=== PATIENT | female | born 1960 | race Caucasian/White ===

== ENCOUNTER → 2017-09-23 | Outpatient (CLI) | payer BC ==
--- NOTE | 2017-09-27 08:44 | MM ---
Reason for exam: screening (asymptomatic). Last mammogram was performed 1 year ago. History: Patient is postmenopausal, has history of high-risk lesion on a previous biopsy at age 55, and had first child at age 30. Family history of breast cancer in mother at age 78. High risk MG pre op needle loc RT of the right breast, November 21, 2015. Benign left mammotome panel of the left breast, September 07, 2013. Took hormonal contraceptives for 1 year beginning at age 22. Took estrogen for 7 years beginning at age 37. Took progesterone for 1 year beginning at age 37. Physical Findings: A clinical breast exam by your physician is recommended on an annual basis and results should be correlated with mammographic findings. MG 3D Screening Mammo W/Cad Bilateral CC and MLO view(s) were taken. Prior study comparison: September 22, 2016, bilateral MG 3d diag mammo w/cad [facility]. June 07, 2016, right breast MG 3d diag mammo w/cad RT. There are scattered fibroglandular densities. No suspicious abnormality. Post biopsy change on the left breast. No significant changes when compared with prior studies. ASSESSMENT: Benign, BI-RAD 2 RECOMMENDATION: Routine screening mammogram of both breasts in 1 year.
== END | disposition home or self-care (01) ==
LOC: RADMAMWWP 13:02
PROVIDERS: ATTEND Obstetrics & Gynecology
DX: Z12.31 Encounter for screening mammogram for malignant neoplasm of breast (principal)
CPT/HCPCS: 77063; G0202

== ENCOUNTER → 2018-12-18 | Outpatient (CLI) | payer OTHER ==
--- NOTE | 2018-12-19 08:47 | MM ---
Reason for exam: screening (asymptomatic). Last mammogram was performed 1 year and 3 months ago. History: Patient is postmenopausal, has history of high-risk lesion on a previous biopsy at age 55, and had first child at age 30. Family history of breast cancer in mother at age 78. High risk MG pre op needle loc RT of the right breast, November 21, 2015. Benign left mammotome panel of the left breast, September 07, 2013. Took hormonal contraceptives for 1 year beginning at age 22. Took estrogen for 7 years beginning at age 37. Took progesterone for 1 year beginning at age 37. Physical Findings: A clinical breast exam by your physician is recommended on an annual basis and results should be correlated with mammographic findings. MG 3D Screening Mammo W/Cad Bilateral CC and MLO view(s) were taken. Prior study comparison: September 23, 2017, bilateral MG 3d screening mammo w/cad. September 22, 2016, bilateral MG 3d diag mammo w/cad [facility]. There are scattered fibroglandular densities. Benign appearing bilateral calcifications. Left biopsy marker noted. No significant changes when compared with prior studies. ASSESSMENT: Benign, BI-RAD 2 RECOMMENDATION: Routine screening mammogram of both breasts in 1 year.
== END | disposition home or self-care (01) ==
LOC: RADMAMWWP 09:54
PROVIDERS: ATTEND Obstetrics & Gynecology
DX: Z12.31 Encounter for screening mammogram for malignant neoplasm of breast (principal); Z80.3 Family history of malignant neoplasm of breast
CPT/HCPCS: 77063; 77067

== ENCOUNTER 2019-03-22 08:18 | Day surgery (SDC) | payer OTHER ==
[2019-03-20 16:12] VITALS: BMI 43.0
[~2019-03-22 08:18] MED LIST: LACTATED RINGERS 1,000 ML IV SCH; LIDOCAINE 1% 20 ML VIAL (10MG/ML) FOR IV START INTRADERMA PRN
[2019-03-22 08:47] VITALS: TEMP 98.6
[2019-03-22] MEDS ORDERED: PROPOFOL 10 MG/ML 20 ML VIAL IV ONE (10:04)
--- NOTE | 2019-03-22 10:43 | P.PCN ---
Date of Procedure: 03/22/19 Procedure(s) Performed: Procedure: Total colonoscopy. Preoperative diagnosis: Family history of colon cancer. Postoperative diagnosis: Exam within normal limits. Preparation: HalfLytely prep. Sedation: Was provided by anesthesia. Brief clinical history: The patient is a 59-year-old female who is scheduled for this evaluation for screening for colon cancer because of family history of colon cancer in her dad and prior history of polyps. She had an exam in 2015 but her preparation was less than ideal on the right side and cecum and was recommended repeat exam at this time before going with the 5-year schedule. The patient has no new complaints, bleeding or anemia. Procedure: With the patient on her left lateral decubitus position and after informed consent and adequate sedation, the perianal area was inspected and it did not show any fissures or fistulas. There were no masses felt on digital rectal examination. The Olympus CFH 190L video colonoscope was then inserted in the rectum in the usual fashion and advanced to the cecum. The preparation was good. The mucosa appeared healthy. There were no obvious polyps or tumors seen. No obvious diverticular disease or other pathology. I retroflexed the endoscope in the rectum before the endoscope was withdrawn. Low-grade internal hemorrhoids were noted but there was no bleeding. The patient tolerated the procedure well. Plan: The patient was reassured. She will follow-up with you as planned and I recommended repeat exam in 5 years.
[2019-03-22 10:55] VITALS: BP 126/85; PULSE 79; RESP 18
== END 2019-03-22 11:14 | disposition home or self-care (01) ==
LOC: ORWHC2ENDO 08:18
DX: Z12.11 Encounter for screening for malignant neoplasm of colon (principal); K64.8 Other hemorrhoids; Z86.010 Personal history of colon polyps; Z80.0 Family history of malignant neoplasm of digestive organs; K21.9 Gastro-esophageal reflux disease without esophagitis; J45.909 Unspecified asthma, uncomplicated; M79.7 Fibromyalgia; M19.90 Unspecified osteoarthritis, unspecified site; G47.33 Obstructive sleep apnea (adult) (pediatric); J44.9 Chronic obstructive pulmonary disease, unspecified; E66.01 Morbid (severe) obesity due to excess calories; Z68.41 Body mass index [BMI] 40.0-44.9, adult; E07.9 Disorder of thyroid, unspecified; Z79.890 Hormone replacement therapy; Z79.51 Long term (current) use of inhaled steroids; Z79.899 Other long term (current) drug therapy; Z88.1 Allergy status to other antibiotic agents; Z88.2 Allergy status to sulfonamides; Z91.09 Other allergy status, other than to drugs and biological substances
CPT/HCPCS: J2704; G0105

== ENCOUNTER → 2020-04-01 | Outpatient (CLI) | payer OTHER ==
--- NOTE | 2020-04-03 10:43 | MM ---
Reason for exam: screening (asymptomatic). Last mammogram was performed 1 year and 3 months ago. History: Patient is postmenopausal, has history of high-risk lesion on a previous biopsy at age 55, and had first child at age 30. Family history of breast cancer in mother at age 78. High risk MG pre op needle loc RT of the right breast, November 21, 2015. Benign left mammotome panel of the left breast, September 07, 2013. Took hormonal contraceptives for 1 year beginning at age 22. Took estrogen for 7 years beginning at age 37. Took progesterone for 1 year beginning at age 37. Physical Findings: A clinical breast exam by your physician is recommended on an annual basis and results should be correlated with mammographic findings. MG 3D Screening Mammo W/Cad Bilateral CC and MLO view(s) were taken. Prior study comparison: December 18, 2018, bilateral MG 3d screening mammo w/cad. September 23, 2017, bilateral MG 3d screening mammo w/cad. The breast tissue is heterogeneously dense. This may lower the sensitivity of mammography. Stable benign calcifications. No significant changes when compared with prior studies. ASSESSMENT: Benign, BI-RAD 2 RECOMMENDATION: Routine screening mammogram of both breasts in 1 year.
== END | disposition home or self-care (01) ==
LOC: RADMAMWWP 14:59
PROVIDERS: ATTEND Family Medicine
DX: Z12.31 Encounter for screening mammogram for malignant neoplasm of breast (principal)
CPT/HCPCS: 77063; 77067

== ENCOUNTER → 2020-04-09 | Outpatient (CLI) | payer OTHER ==
[2020-04-09 10:22] VITALS: BP 124/74; PULSE 87; RESP 20; TEMP 97.9
--- NOTE | 2020-04-09 13:18 | P.HPOB ---
History of Present Illness H&P Date: 04/09/20 Chief Complaint: The patient is here for her routine gynecologic exam. This is a 60-year-old with an LMP of 1995. Patient is here to establish with this office. It has been more than one year since her last pelvic exam. She is without gynecologic complaints and denies any postmenopausal bleeding. Review of Systems She has gained about 6 pounds over the past year. She has been under a lot of stress related to issues regarding her parents estate after they . She denies respiratory or cardiac problems. GI: Occasional gastric reflux. Past Medical History Past Medical History: Asthma, Fibromyalgia, GERD/Reflux, Hyperlipidemia, Osteoarthritis (OA), Seizure Disorder, Skin Disorder, Sleep Apnea/CPAP/BIPAP, Thyroid Disorder Additional Past Medical History / Comment(s): ECZEMA, small HIATAL HERNIA, IBS. hx fx back and neck(mult stress fractures), TMJ., sjogrens, gabriela diasease, hypothyroid, osteomylasia, osteopenia. Past BARKEEP history: HPV on a Pap smear in 2004. No other history of STDs. History of Any Multi-Drug Resistant Organisms: None Reported Past Surgical History: Section, Ear Surgery Additional Past Surgical History / Comment(s): RIGHT EYE surgery for blocked tear duck and deviated septum, SINUS SURGERY X2, RIGHT BREAST LUMPECTOMY, LEFT BREAST BX. Colonoscopy 2019(next after 5yr). One after previous vaginal delivery. Past Anesthesia/Blood Transfusion Reactions: Motion Sickness, Postoperative Nausea & Vomiting (PONV) Additional Past Anesthesia/Blood Transfusion Reaction / Comment(s): diff intubation per pt-needs pediatric size for intubation, hx dislocated jaw- limitations for opening mouth. TMJ. pt states she has never had general anesthesia/intubation but was forewarned she would have to need pediatric size, , front dental implant Past Psychological History: Anxiety, Depression Smoking Status: Never smoker Past Alcohol Use History: Rare (1 year) Past Drug Use History: None Reported Additional Drug Use History / Comment(s): CBD oil for seizures Additional History: She is and is not seeing anybody at this time and has not been sexually active for several years. 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 Hepatitis B, chronic carrier. Brother(s) Family Medical History: Hyperlipidemia, Osteoarthritis (OA) Medications and Allergies Home Medications Medication Instructions Recorded Confirmed Type Albuterol Inhaler (Mhu) [Ventolin 1 - 2 puff INHALATION DIRECTED 11/19/15 04/09/20 History Hfa Inhaler] PRN Atorvastatin [Lipitor] 80 mg PO DAILY@1700 11/19/15 04/09/20 History Budesonide/Formoterol Fumarate 1 puff IH BID PRN 11/19/15 04/09/20 History [Symbicort 160-4.5 Mcg Inhaler] Citalopram Hydrobromide [CeleXA] 40 mg PO DAILY@1700 11/19/15 04/09/20 History Fluticasone Nasal [place] [Flonase 2 spray EA NOSTRIL HS 11/19/15 04/09/20 History Nasal [place]] Montelukast [Singulair] 10 mg PO HS 11/19/15 04/09/20 History Pantoprazole Sodium [Protonix] 40 mg PO QAM 11/19/15 04/09/20 History Ubidecarenone [Co Q-10] 100 mg PO DAILY 11/19/15 04/09/20 History Vitamin B Complex 1 each PO DAILY 11/19/15 04/09/20 History Calcium Citrate 300 - 600 mg PO DAILY 04/01/16 04/09/20 History Raloxifene [Evista] 60 mg PO DAILY@1700 04/01/16 04/09/20 History Ibuprofen [Motrin] 800 mg PO BID PRN 03/20/19 04/09/20 History Levothyroxine Sodium [Synthroid] 75 mcg PO DAILY 03/20/19 04/09/20 History Loratadine-Pseudoeph 5-120 mg 1 each PO Q12HR PRN 03/20/19 04/09/20 History [Claritin-D 12 HR] Cholecalciferol [Vitamin D3 (25 5,000 unit PO DAILY 04/09/20 04/09/20 History Mcg = 1000 Iu)] Eslicarbazepine Acetate [Aptiom] 600 mg PO DAILY 04/09/20 04/09/20 History cycloSPORINE [Restasis] 1 drop BOTH EYES BID 04/09/20 04/09/20 History Allergies Allergy/AdvReac Type Severity Reaction Status Date / Time Sulfa (Sulfonamide Allergy Rash/Hives Verified 04/09/20 10:10 Antibiotics) erythromycin base AdvReac Abdominal Verified 04/09/20 10:10 Pain metronidazole [From Flagyl] AdvReac Abdominal Verified 04/09/20 10:10 Pain silk tape AdvReac Rash/Hives Uncoded 04/09/20 10:10 Exam Vital Signs Temp Pulse Resp BP Pulse Ox 04/09/20 10:18 97.9 F 87 20 124/74 96 Intake and Output 04/08/20 04/09/20 04/09/20 22:59 06:59 14:59 Other: Weight 116.573 kg Height 5 feet 3-1/2 inches, weight 257 pounds, BMI 45.5. This is a well-developed well-nourished heavyset white female who is alert and oriented times 3 in no acute distress. HEENT: Within normal limits. NECK: Supple without mass or thyromegaly. CHEST AND LUNGS: Clear to auscultation. HEART: Regular rate and rhythm. BREASTS: Are without mass or discharge. AXILLARY EXAM: Negative for adenopathy. BACK: Negative for CVA tenderness. ABDOMEN: Soft, obese, nontender, without palpable masses. PELVIC EXAM: Normal external genitalia with mild atrophy. Cervix and vagina appear normal with mild atrophy. There is no unusual discharge. There is no evidence of prolapse. The uterus is midposition, nongravid size and nontender. There are no palpable adnexal masses or tenderness. Bimanual examination is somewhat limited secondary to her size. RECTAL EXAM: rectovaginal exam is negative for mass or tenderness and is negative for occult blood. EXTREMITIES: Nontender. IMPRESSION: 1. 60-year-old menopausal female with normal gynecologic exam. 2. Multiple medical problems. PLAN: 1. Pap smear was performed. 2. Self breast awareness was discussed with the patient. 3. Screening mammogram was done on 04/01/2020 and was benign. 4. Osteoporosis prevention was discussed. I have stressed the importance of adequate calcium, vitamin D and regular exercise. Recommended amounts of calci um and vitamin D were also discussed. She is unsure when her last bone density test was done. She will try to check her records. We will plan repeating this in 1 year unless she believes the last bone density test was done within the last year. 5. She was advised to return in one year for her annual well woman exam.
--- NOTE | 2020-04-16 11:50 | P.PN ---
Progress Note - Text Progress Note Date: 04/16/20 OUTPATIENT FOLLOW-UP NOTE TEST(S)/RESULTS: Pap smear from 04/09/2020 was negative. METHOD OF NOTIFICATION: A message with this result was left on the patient's voicemail. PATIENT COMMENTS: DIAGNOSIS: Negative Pap smear DISCUSSION: PLAN: She was advised to return in one year for her annual well woman exam.
== END | disposition home or self-care (01) ==
LOC: WWCWWP 10:01
PROVIDERS: ATTEND Obstetrics & Gynecology
DX: Z53.9 Procedure and treatment not carried out, unspecified reason (principal)

== ENCOUNTER → 2020-06-06 | Outpatient (CLI) | payer OTHER ==
--- NOTE | 2020-06-06 09:41 | CT ---
EXAMINATION TYPE: CT abdomen pelvis wo con DATE OF EXAM: 06/06/2020 COMPARISON: None HISTORY: LUQ pain, history of IBS CT DLP: 991 mGycm Examination of the solid and hollow viscera is limited given the lack of contrast. FINDINGS: LUNG BASES: No evidence for nodule. No evidence for infiltrate. LIVER/GB: The gallbladder is unremarkable. No space-occupying hepatic lesion. PANCREAS: No pancreatic mass identified. No inflammatory process seen. SPLEEN: No evidence for splenomegaly. No intrasplenic lesions seen. ADRENALS: No adrenal nodules identified. No evidence for thickening. KIDNEYS: No evidence for renal mass. No nephrolithiasis. No hydronephrosis. BOWEL: Appendix has a normal appearance. No evidence of bowel obstruction. No inflammatory process. Lymph nodes: No evidence for adenopathy greater than 1 cm. Abdominal aorta: Atheromatous changes seen. No evidence for aneurysm. Genital organs: There is thickening of the endometrium at 1.5 cm. Further evaluation with pelvic ultr asound is advised. No distinct uterine mass or adnexal mass seen. Other: No significant abnormality. IMPRESSION: 1.There is thickening of the endometrium at 1.5 cm. Further evaluation with pelvic ultrasound is advi sed.
== END | disposition home or self-care (01) ==
LOC: RADCTMAIN 07:44
PROVIDERS: ATTEND Family Medicine
DX: R93.89 Abnormal findings on diagnostic imaging of other specified body structures (principal); R10.32 Left lower quadrant pain
CPT/HCPCS: 74176

== ENCOUNTER → 2020-06-27 | Outpatient (CLI) | payer OTHER ==
--- NOTE | 2020-06-27 14:58 | US ---
EXAMINATION TYPE: US transvaginal DATE OF EXAM: 06/27/2020 COMPARISON: CLINICAL HISTORY: R93.[address] showed endometrial thickening TECHNIQUE: Transvaginal (TV). 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 Uterus: Anteverted heterogenous and appears small in size. 2. Endometrium: Fluid seen in endometrial canal extending to cervical 3. Right Ovary: Obscured by overlying bowel gas 4. Left Ovary: Obscured by overlying bowel gas 5. Bilateral Adnexa: wnl 6. Posterior cul-de-sac: no free fluid IMPRESSION: Fluid within the endometrial canal is nonspecific.
== END | disposition home or self-care (01) ==
LOC: RADUSWWP 14:08
PROVIDERS: ATTEND Family Medicine
DX: R93.89 Abnormal findings on diagnostic imaging of other specified body structures (principal)
CPT/HCPCS: 76830

== ENCOUNTER 2020-08-06 08:31 | Day surgery (SDC) | payer MEDICARE, OTHER ==
[2020-08-05 10:31] VITALS: BMI 44.2
[~2020-08-06 08:31] MED LIST changes: +LIDOCAINE 1% (10MG/ML) FOR IV START INTRADERMA PRN; -LIDOCAINE 1% 20 ML VIAL (10MG/ML) FOR IV START INTRADERMA PRN
[2020-08-06 09:15] VITALS: TEMP 98
[2020-08-06] MEDS ORDERED: PROPOFOL 10 MG/ML 20 ML VIAL IV ONE (09:56)
[2020-08-06] MEDS ORDERED: LIDOCAINE 1% INJ 10MG/ML (20 ML MDV) ONE (09:56)
--- NOTE | 2020-08-06 10:10 | P.PCN ---
Date of Procedure: 08/06/20 Procedure(s) Performed: BRIEF HISTORY: Patient is a 60-year-old, pleasant, white female scheduled for an upper endoscopy as a part of evaluation of epigastric and left upper quadrant abdominal pain associated with abdominal bloating as well as heartburn for several years duration. She has been on Protonix 40 mg twice daily despite which significant symptomatic. She tried Pepcid at bedtime.. PROCEDURE PERFORMED: Esophagogastroduodenoscopy with biopsy. PREOPERATIVE DIAGNOSIS: Long-standing history of GERD/epigastric. IV sedation per anesthesia. PROCEDURE: After informed consent was obtained, the patient was brought into the endoscopy unit. IV sedation was administered by Anesthesia under continuous monitoring. Initially the Olympus GIF-140 video endoscope was inserted into the mouth. Esophagus intubated without any difficulty. It was gradually advanced into the stomach and duodenum and carefully examined. The bulb of the duodenum had mild duodenitis and the second part of the duodenum appeared normal. Her sister at length of the duodenum to rule out celiac disease. The scope at this time was withdrawn to the stomach, adequately insufflated with air, and upon careful examination, mucosa of the antrum, and mild gastritis and biopsies were done from this area. The body, cardia and the fundus appeared normal. The scope was then withdrawn into the esophagus. The GE junction was located at 39 cm from the incisors. The esophagus appeared normal. There were no erosions or ulcerati ons seen, biopsies were done from the distal esophagus and the patient tolerated the procedure well. IMPRESSION: 1. Mild antral gastritis 2. Mild duodenitis but no evidence of peptic ulcer disease. RECOMMENDATIONS: The findings of this examination were discussed with the patient as well as a family. She was advised to follow with the biopsy result. She'll be seen in office in 2 weeks..
[2020-08-06 10:39] VITALS: BP 114/74; PULSE 73; RESP 16
== END 2020-08-06 11:00 | disposition home or self-care (01) ==
LOC: ORWHC2ENDO 08:31
PROVIDERS: ATTEND Internal Medicine Gastroenterology
DX: K21.00 Gastro-esophageal reflux disease with esophagitis, without bleeding (principal); K29.50 Unspecified chronic gastritis without bleeding; K29.80 Duodenitis without bleeding; E78.5 Hyperlipidemia, unspecified; J45.909 Unspecified asthma, uncomplicated; M79.7 Fibromyalgia; M35.00 Sjogren syndrome, unspecified; G47.33 Obstructive sleep apnea (adult) (pediatric); E07.9 Disorder of thyroid, unspecified; R56.9 Unspecified convulsions; F41.9 Anxiety disorder, unspecified; F32.9 Major depressive disorder, single episode, unspecified; Z99.89 Dependence on other enabling machines and devices; Z91.19 Patient's noncompliance with other medical treatment and regimen; Z79.51 Long term (current) use of inhaled steroids; Z79.1 Long term (current) use of non-steroidal anti-inflammatories (NSAID); Z79.890 Hormone replacement therapy; Z79.899 Other long term (current) drug therapy; Z88.1 Allergy status to other antibiotic agents; Z88.2 Allergy status to sulfonamides; Z88.8 Allergy status to other drugs, medicaments and biological substances; Z91.09 Other allergy status, other than to drugs and biological substances
CPT/HCPCS: 88305; 43239; J2001; J2704

== ENCOUNTER → 2021-04-02 | Outpatient (CLI) | payer MEDICARE, OTHER ==
--- NOTE | 2021-04-06 14:36 | MM ---
Reason for exam: screening (asymptomatic). Last mammogram was performed 1 year ago. History: Patient is postmenopausal, has history of high-risk lesion on a previous biopsy at age 55, and had first child at age 30. Family history of breast cancer in mother at age 78. High risk MG pre op needle loc RT of the right breast, November 21, 2015. Benign left mammotome panel of the left breast, September 07, 2013. Took hormonal contraceptives for 1 year beginning at age 22. Took estrogen for 7 years beginning at age 37. Took progesterone for 1 year beginning at age 37. Physical Findings: A clinical breast exam by your physician is recommended on an annual basis and results should be correlated with mammographic findings. MG 3D Screening Mammo W/Cad Bilateral CC, MLO, and XCCL view(s) were taken. Prior study comparison: April 01, 2020, bilateral MG 3d screening mammo w/cad. December 18, 2018, bilateral MG 3d screening mammo w/cad. There are scattered fibroglandular densities. No significant changes when compared with prior studies. ASSESSMENT: Benign, BI-RAD 2 RECOMMENDATION: Routine screening mammogram of both breasts in 1 year.
== END | disposition home or self-care (01) ==
LOC: RADMAMWWP 13:01
PROVIDERS: ATTEND Family Medicine
DX: Z12.31 Encounter for screening mammogram for malignant neoplasm of breast (principal); Z78.0 Asymptomatic menopausal state; Z80.3 Family history of malignant neoplasm of breast; Z79.3 Long term (current) use of hormonal contraceptives
CPT/HCPCS: 77063; 77067

== ENCOUNTER → 2021-04-07 | Outpatient (CLI) | payer MEDICARE, OTHER ==
[2021-04-07 15:04] VITALS: BP 128/84; PULSE 87; RESP 18; TEMP 98.5
--- NOTE | 2021-04-07 16:56 | P.HPOB ---
History of Present Illness H&P Date: 04/07/21 Chief Complaint: The patient is here for her routine gynecologic exam. This is a 61-year-old with an LMP of 1995. The patient is without gynecologic complaints and denies any postmenopausal bleeding. She states she recently had a bone density test at Dr. Serna's office. She has not gotten results from this. She had an ultrasound done on 06/27/2020 and was told there was some fluid in the endometrium. The ultrasound was done because of possible endometrial thickening on CT scan which was done for some type of GI indication. Review of Systems The patient has gained 5 pounds over the last year. She denies respiratory, cardiac, or G.I. problems. Past Medical History Past Medical History: Asthma, Fibromyalgia, GERD/Reflux, Hyperlipidemia, Osteoarthritis (OA), Seizure Disorder, Skin Disorder, Sleep Apnea/CPAP/BIPAP, Thyroid Disorder Additional Past Medical History / Comment(s): ECZEMA, HIATAL HERNIA, IBS. 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 No other history of STDs. History of Any Multi-Drug Resistant Organisms: None Reported Past Surgical History: Breast Surgery, Section, Ear Surgery Additional Past Surgical History / Comment(s): RIGHT EYE surgery for blocked tear duck, deviated septum, SINUS SURGERY X2, RIGHT BREAST LUMPECTOMY, LEFT BREAST biopsy with marker Past Anesthesia/Blood Transfusion Reactions: Motion Sickness, Postoperative Nausea & Vomiting (PONV) Additional Past Anesthesia/Blood Transfusion Reaction / Comment(s): diff intu bation per pt-needs pediatric size for intubation, hx dislocated jaw-limitations for opening mouth. TMJ. diff walking up after general anesthesia Past Psychological History: Anxiety, Depression Smoking Status: Never smoker Past Alcohol Use History: Rare (One per year) Past Drug Use History: None Reported Additional Drug Use History / Comment(s): . Additional History: She is and has not seen anybody at this time and has not been sexually active for several years. 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 Hepatitis B, Brother(s) Family Medical History: Hyperlipidemia, Osteoarthritis (OA) Medications and Allergies Home Medications Medication Instructions Recorded Confirmed Type Atorvastatin [Lipitor] 80 mg PO 1800 11/19/15 04/07/21 History Budesonide/Formoterol Fumarate 1 puff IH BID PRN 11/19/15 04/07/21 History [Symbicort 160-4.5 Mcg Inhaler] Citalopram Hydrobromide [CeleXA] 40 mg PO 1800 11/19/15 04/07/21 History Fluticasone Nasal [place] [Flonase 2 spray EA NOSTRIL HS 11/19/15 04/07/21 History Nasal [place]] Montelukast [Singulair] 10 mg PO HS 11/19/15 04/07/21 History Pantoprazole Sodium [Protonix] 40 mg PO BID 11/19/15 04/07/21 History Ubidecarenone [Co Q-10] 100 mg PO DAILY PRN 11/19/15 04/07/21 History Vitamin B Complex 1 each PO DAILY 11/19/15 04/07/21 History Calcium Citrate 300 - 600 mg PO Q2D 04/01/16 04/07/21 History Ibuprofen [Motrin] 800 mg PO BID PRN 03/20/19 04/07/21 History Levothyroxine Sodium [Synthroid] 75 mcg PO DAILY 03/20/19 04/07/21 History Cholecalciferol [Vitamin D3 (25 5,000 unit PO 1800 04/09/20 04/07/21 History Mcg = 1000 Iu)] cycloSPORINE [Restasis] 1 drop BOTH EYES BID 04/09/20 04/07/21 History Ascorbic Acid [Vitamin C] 500 mg PO 1800 08/05/20 04/07/21 History Eslicarbazepine Acetate [Aptiom] 600 mg PO HS 08/05/20 04/07/21 History L.acidoph,Paracasei, B.lactis 1 each PO DAILY 08/05/20 04/07/21 History [Probiotic] guaiFENesin [Mucinex] 1,200 mg PO DAILY 08/05/20 04/07/21 History Albuterol Sulfate [Proair 1 puff INHALATION Q6H PRN 04/07/21 04/07/21 History Digihaler] Dicyclomine [Bentyl] 10 mg PO TID PRN 04/07/21 04/07/21 History Gabapentin [Neurontin] 100 mg PO TID PRN 04/07/21 04/07/21 History Allergies Allergy/AdvReac Type Severity Reaction Status Date / Time Sulfa (Sulfonamide Allergy Rash/Hives Verified 04/07/21 14:53 Antibiotics) thimerosal Allergy Swelling Verified 04/07/21 14:53 erythromycin base AdvReac Abdominal Verified 04/07/21 14:53 Pain metronidazole [From Flagyl] AdvReac Abdominal Verified 04/07/21 14:53 Pain silk tape AdvReac Rash/Hives Uncoded 04/07/21 14:53 Exam Vital Signs Temp Pulse Resp BP Pulse Ox 04/07/21 14:58 98.5 F 87 18 128/84 98 Intake and Output 04/07/21 04/07/21 04/07/21 06:59 14:59 22:59 Other: Weight 118.841 kg Height 5 feet 2-1/2 inches, weight 262 pounds, BMI 47.2. This is a well-developed well-nourished heavyset white female who is alert and oriented times 3 in no acute distress. HEENT: Within normal limits. NECK: Supple without mass or thyromegaly. CHEST AND LUNGS: Clear to auscultation. HEART: Regular rate and rhythm. BREASTS: Are without mass or discharge. AXILLARY EXAM: Negative for adenopathy. BACK: Negative for CVA tenderness. ABDOMEN: Soft, nontender, without palpable masses. PELVIC EXAM: Normal external genitalia with mild atrophy. Cervix and vagina appear normal with mild atrophy. There is no unusual discharge. There is no evidence of prolapse. The uterus is midposition, nongravid size and nontender. There are no palpable adnexal masses or tenderness. Bimanual examination is somewhat limited secondary to her size. RECTAL EXAM: Rectovaginal exam is negative for mass or tenderness and is negative for occult blood. EXTREMITIES: Nontender. Pelvic ultrasound done on 06/27/2020 showed in endometrial thickness of 0.3 cm. There is some fluid noted within the endometrial cavity. IMPRESSION: 1. 61-year-old menopausal female with normal gynecologic exam. 2. Endometrial fluid noted by ultrasound done on 06/27/2020. This is asymptomatic and there are no significant physical findings on exam today. 3. History of osteopenia and she did do a recent bone density test at her primary care physician's office. 4. Multiple medical problems. 5. Obesity. PLAN: 1. Pap smear was deferred since she had a normal one on 04/09/2020. 2. Self breast awareness was discussed with the patient. 3. Screening mammogram was recently done on 04/02/2021 and this was benign. 4. We will plan on repeating the pelvic ultrasound to reevaluate the endometrial fluid. If this is unchanged, consider yearly pelvic ultrasound unless symptomatic. She was instructed to call if she does develop postmenopausal bleeding. The order slip for the pelvic ultrasound was given to the patient. 5. We have discussed weight control. I stressed the importance of regular meals, adequate fiber intake and exercise. 6.Osteoporosis prevention was discussed. I have stressed the importance of adequate calcium, vitamin D and regular exercise. Recommended amounts of calcium and vitamin D were also discussed. We will try to obtain the bone density testing report that was recently done through her primary care physician's office. The patient will also contact the office since she has not heard results and this was done more than 3 weeks ago. She will also ask for her PCP office to send me the results. 7. She was advised to return in one year for her annual well woman exam.
--- NOTE | 2021-04-08 13:15 | P.PN ---
Progress Note - Text Progress Note Date: 04/08/21 OUTPATIENT FOLLOW-UP NOTE TEST(S)/RESULTS: Bone density report from 03/19/2021 was obtained. This was done at [facility] as ordered by her PCP. The bone density test was read as normal METHOD OF NOTIFICATION: The patient was notified by phone. PATIENT COMMENTS: She states she had not been given these results by her PCP and she was happy to hear these results. DIAGNOSIS: Normal bone density test results. DISCUSSION: She understands that if she had previous bone fractures, medications still may be beneficial and she can discuss this with her primary care physician. I have stressed the importance of adequate calcium, vitamin D and regular exercise. PLAN: She was advised to return in one year for her annual well woman exam. I have recommended repeating the bone density test in approximately 4-5 years, or sooner if recommended by her PCP.
== END ==
LOC: WWCWWP 14:50
PROVIDERS: ATTEND Obstetrics & Gynecology
DX: Z01.419 Encounter for gynecological examination (general) (routine) without abnormal findings (principal); E66.9 Obesity, unspecified; J45.909 Unspecified asthma, uncomplicated; Z87.39 Personal history of other diseases of the musculoskeletal system and connective tissue; E78.5 Hyperlipidemia, unspecified; M19.90 Unspecified osteoarthritis, unspecified site; F32.9 Major depressive disorder, single episode, unspecified; F41.9 Anxiety disorder, unspecified; K21.9 Gastro-esophageal reflux disease without esophagitis; Z79.51 Long term (current) use of inhaled steroids; Z79.899 Other long term (current) drug therapy; Z68.42 Body mass index [BMI] 45.0-49.9, adult; Z88.2 Allergy status to sulfonamides; Z88.1 Allergy status to other antibiotic agents; Z91.048 Other nonmedicinal substance allergy status

== ENCOUNTER → 2021-04-13 | Outpatient (CLI) | payer MEDICARE, OTHER ==
--- NOTE | 2021-04-13 14:11 | US ---
EXAMINATION TYPE: US pelvic complete DATE OF EXAM: 04/13/2021 COMPARISON: US 06/27/20, CT 06/06/20 CLINICAL HISTORY: R93.8 ENDOMETRIAL FLUID. TECHNIQUE: Transabdominal (TA). Transabdominal sonographic images of the pelvis were acquired. Date of LMP: Postmenopausal EXAM MEASUREMENTS: Uterus: 7.7 x 3.8 x 2.7 cm Endometrial Stripe: 0.9 cm Right Ovary: Not seen cm Left Ovary: Not seen cm 1. Uterus: Anteverted 2. Endometrium: with fluid within as seen previously 3. Right Ovary: Obscured by overlying bowel gas 4. Left Ovary: Obscured by overlying bowel gas 5. Bilateral Adnexa: wnl 6. Posterior cul-de-sac: wnl IMPRESSION: Again seen is fluid within the endometrium. Please correlate clinically. Neither ovary could be visualized.
--- NOTE | 2021-04-14 15:10 | P.PN ---
Progress Note - Text Progress Note Date: 04/14/21 OUTPATIENT FOLLOW-UP NOTE TEST(S)/RESULTS: Pelvic ultrasound done on 04/13/2021 was reviewed with the radiologist, Dr. Billings. See the addendum that was made by Dr. Billings to clarify the endometrial appearance. The endometrium appears very thin. There is again some fluid within the endometrial cavity and this appears to be less than what was seen by last year's ultrasound. METHOD OF NOTIFICATION: The patient was notified by phone. PATIENT COMMENTS: The patient denies any postmenopausal bleeding, pelvic pressure or pain. DIAGNOSIS: Postmenopausal fluid within the endometrial cavity with thin endometrium and no postmenopausal. DISCUSSION: The endometrial fluid was initially found after CT scan was done for some GI indication and pelvic ultrasound was recommended. We have discussed how this likely represents a benign condition and we will follow this conservatively. She was instructed to call if she has any vaginal bleeding, pelvic pain or pressure or problems. PLAN: She will return in one year for her well woman examination and will repeat the ultrasound in one year and as needed.
== END | disposition home or self-care (01) ==
LOC: RADUSWWP 12:29
PROVIDERS: ATTEND Obstetrics & Gynecology
DX: Z78.0 Asymptomatic menopausal state (principal)
CPT/HCPCS: 76856

== ENCOUNTER → 2022-04-13 | Outpatient (CLI) | payer MEDICARE, OTHER ==
[2022-04-13 14:19] VITALS: BP 142/91; PULSE 85; RESP 18; TEMP 98.5
--- NOTE | 2022-04-13 15:07 | P.HPOB ---
History of Present Illness H&P Date: 04/13/22 Chief Complaint: The patient is here for her routine gynecologic exam and ma mmogram. This is a 62-year-old with an LMP of 1995. The patient states she recently had some pelvic soreness which lasted a few hours and it felt like ovulatory discomfort that she had in the past. She also had some low back discomfort at that time. She denies any postmenopausal bleeding. She has been followed for a small amount of endometrial fluid seen on a pelvic ultrasound last year. Review of Systems She has lost about 26 pounds over the past year. She has done this through [employer] and this has been intentional through diet and exercise. Re spiratory: Occasional ALLERGY symptoms. She denies cardiac problems. GI: Some constipation Past Medical History Past Medical History: Asthma, Fibromyalgia, GERD/Reflux, Hyperlipidemia, Osteoarthritis (OA), Seizure Disorder, Skin Disorder, Sleep Apnea/CPAP/BIPAP, Thyroid Disorder Additional Past Medical History / Comment(s): ECZEMA, HIATAL HERNIA, IBS. 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 No other history of STDs. History of Any Multi-Drug Resistant Organisms: None Reported Past Surgical History: Breast Surgery, Section, Ear Surgery Additional Past Surgical History / Comment(s): RIGHT EYE surgery for blocked tear duck, deviated septum, SINUS SURGERY X2, RIGHT BREAST LUMPECTOMY, LEFT BREAST biopsy with marker. Colonoscopy with upper endoscopy in 2019(next after 5yr). Past Anesthesia/Blood Transfusion Reactions: Motion Sickness, Postoperative Nausea & Vomiting (PONV) Additional Past Anesthesia/Blood Transfusion Reaction / Comment(s): diff intubation per pt-needs pediatric size for intubation, hx dislocated jaw- limitations for opening mouth. TMJ. diff walking up after general anesthesia Past Psychological History: Anxiety, Depression Smoking Status: Never smoker Past Alcohol Use History: Rare Past Drug Use History: None Reported Additional Drug Use History / Comment(s): . Additional History: She is and has not seen anybody at this time and has not been sexually active since approximately 2014. 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 Hepatitis B, Brother(s) Family Medical History: Hyperlipidemia, Osteoarthritis (OA) Medications and Allergies Home Medications Medication Instructions Recorded Confirmed Type Atorvastatin [Lipitor] 80 mg PO 1800 11/19/15 04/13/22 History Budesonide/Formoterol Fumarate 1 puff IH BID PRN 11/19/15 04/13/22 History [Symbicort 160-4.5 Mcg Inhaler] Citalopram Hydrobromide [CeleXA] 40 mg PO 1800 11/19/15 04/13/22 History Fluticasone Nasal [place] [Flonase 2 spray EA NOSTRIL HS 11/19/15 04/13/22 History Nasal [place]] Montelukast [Singulair] 10 mg PO HS 11/19/15 04/13/22 History Pantoprazole Sodium [Protonix] 40 mg PO BID 11/19/15 04/13/22 History Ubidecarenone [Co Q-10] 100 mg PO DAILY PRN 11/19/15 04/13/22 History Vitamin B Complex 1 each PO DAILY 11/19/15 04/13/22 History Calcium Citrate 300 - 600 mg PO Q2D 04/01/16 04/13/22 History Ibuprofen [Motrin] 800 mg PO BID PRN 03/20/19 04/13/22 History Levothyroxine Sodium [Synthroid] 75 mcg PO DAILY 03/20/19 04/13/22 History Cholecalciferol [Vitamin D3 (25 5,000 unit PO 1800 04/09/20 04/13/22 History Mcg = 1000 Iu)] cycloSPORINE [Restasis] 1 drop BOTH EYES BID 04/09/20 04/13/22 History Ascorbic Acid [Vitamin C] 500 mg PO 1800 08/05/20 04/13/22 History Eslicarbazepine Acetate [Aptiom] 600 mg PO HS 08/05/20 04/13/22 History L.acidoph,Paracasei, B.lactis 1 each PO DAILY 08/05/20 04/13/22 History [Probiotic] guaiFENesin [Mucinex] 1,200 mg PO DAILY 08/05/20 04/13/22 History Albuterol Sulfate [Proair 1 puff INHALATION Q6H PRN 04/07/21 04/13/22 History Digihaler] Dicyclomine [Bentyl] 10 mg PO TID PRN 04/07/21 04/13/22 History Gabapentin [Neurontin] 100 mg PO TID PRN 04/07/21 04/13/22 History Allergies Allergy/AdvReac Type Severity Reaction Status Date / Time Sulfa (Sulfonamide Allergy Rash/Hives Verified 04/13/22 14:12 Antibiotics) thimerosal Allergy Swelling Verified 04/13/22 14:12 erythromycin base AdvReac Abdominal Verified 04/13/22 14:12 Pain metronidazole [From Flagyl] AdvReac Abdominal Verified 04/13/22 14:12 Pain silk tape AdvReac Rash/Hives Uncoded 04/13/22 14:12 Exam Vital Signs Temp Pulse Resp BP Pulse Ox 04/13/22 14:16 98.5 F 85 18 142/91 96 Intake and Output 04/12/22 04/13/22 04/13/22 22:59 06:59 14:59 Other: Weight 107.048 kg Height 5 feet 3 inches, weight 236 pounds, BMI 41.8. This is a well-developed well-nourished heavyset white female who is alert and oriented times 3 in no acute distress. HEENT: Within normal limits. NECK: Supple without mass or thyromegaly. CHEST AND LUNGS: Clear to auscultation. HEART: Regular rate and rhythm. BREASTS: Are without mass or discharge. AXILLARY EXAM: Negative for adenopathy. BACK: Negative for CVA tenderness. ABDOMEN: Soft, obese, nontender, without palpable masses. PELVIC EXAM: Normal external genitalia with mild atrophy. Cervix and vagina appear normal with mild atrophy. The cervix appears nulliparous and is slightly stenotic secondary to atrophy. There is no unusual discharge. There is no evidence of prolapse. The uterus is midposition, nongravid size and nontender. There are no palpable adnexal masses or tenderness. Bimanual examination is somewhat limited secondary to her size. RECTAL EXAM: Rectovaginal exam is negative for mass or tenderness and is negative for occult blood. EXTREMITIES: Nontender. IMPRESSION: 1. 62-year-old menopausal female with normal gynecologic exam. 2. History of small endometrial fluid found by ultrasound which has been followed conservatively. 3. Brief episode of bilateral pelvic pain that resembled ovulatory discomfort w ith no significant physical findings on exam today. PLAN: 1. Pap smear was performed. If this is negative this will be repeated in approximately 3 years and if they are both negative, we will plan on discontinuing Pap smears. 2. Self breast awareness was discussed with the patient. We have also discussed symptoms associated with inflammatory breast cancer. 3. Screening mammogram will be done today. 4. Osteoporosis prevention was discussed. I have stressed the importance of adequate calcium, vitamin D and regular exercise. Recommended amounts of calcium and vitamin D were also discussed. Her last bone density test was done at [facility] on 03/19/2021 and was normal. 5. She has completed her Covid vaccination series and did receive one booster. 6. Pelvic ultrasound will be done to reevaluate the endometrial fluid and to further evaluate the brief pelvic pains that she experienced. 7. She was advised to return in one year for her annual well woman exam.
--- NOTE | 2022-04-14 14:09 | MM ---
Reason for Exam: Screening (asymptomatic). Last screening mammogram was performed 12 month(s) ago. Patient History: Menarche at age 12. First Full-Term at age 30. Late child-bearing (after 29). Postmenopausal. Estrogen for 7 years from age 37 until age 43. Progesterone for 1 year from age 37 until age 38. Hormonal Contraceptives for 1 year from age 22 until age 33. 11/21/2015, High risk Core Biopsy on the right side. 09/07/2013, Benign Core Biopsy on the left side. Mother had breast cancer, right, age 78. Risk Values: Racquel 5 year model risk: 4.7%. NCI Lifetime model risk: 19.0%. Prior Study Comparison: 12/18/2018 Bilateral Screening Mammogram, [facility]. 04/01/2020 Bilateral Screening Mammogram, [facility]. 04/02/2021 Bilateral Screening Mammogram, [facility]. Tissue Density: The breast tissue is almost entirely fat. Findings: Analyzed By CAD. There are indeterminate calcifications in the outer aspect of the right breast seen on the CC view approximately 9 cm from the nipple, interval change compared to prior exam. Additionally, increasing calcifications are noted in the upper outer left breast approximately 8 cm from the nipple No suspicious mass. Overall Assessment: Incomplete: need additional imaging evaluation, BI-RAD 0 Management: Special View Mammogram of both breasts. A clinical breast exam by your physician is recommended on an annual basis and results should be correlated with mammographic findings. Electronically signed and approved by: Anand Viera M.D. Radiologis
== END ==
LOC: WWCWWP 14:06
PROVIDERS: ATTEND Obstetrics & Gynecology
DX: Z12.31 Encounter for screening mammogram for malignant neoplasm of breast (principal); Z01.419 Encounter for gynecological examination (general) (routine) without abnormal findings; R10.2 Pelvic and perineal pain; N85.8 Other specified noninflammatory disorders of uterus; J45.909 Unspecified asthma, uncomplicated; E78.5 Hyperlipidemia, unspecified; M19.90 Unspecified osteoarthritis, unspecified site; G40.909 Epilepsy, unspecified, not intractable, without status epilepticus; F41.9 Anxiety disorder, unspecified; F32.A Depression, unspecified; K21.9 Gastro-esophageal reflux disease without esophagitis; Z78.0 Asymptomatic menopausal state; Z88.2 Allergy status to sulfonamides; Z88.1 Allergy status to other antibiotic agents; Z91.048 Other nonmedicinal substance allergy status
CPT/HCPCS: 77063; 77067

== ENCOUNTER → 2022-04-21 | Outpatient (CLI) | payer MEDICARE, OTHER ==
--- NOTE | 2022-04-21 11:26 | MM ---
Reason for Exam: Additional evaluation requested from abnormal screening. Last screening mammogram was performed less than 1 month ago. Patient History: Menarche at age 12. First Full-Term at age 30. Late child-bearing (after 29). Postmenopausal. Estrogen for 7 years from age 37 until age 43. Progesterone for 1 year from age 37 until age 38. Hormonal Contraceptives for 1 year from age 22 until age 33. 11/21/2015, High risk Core Biopsy on the right side. 09/07/2013, Benign Core Biopsy on the left side. Mother had breast cancer, right, age 78. Risk Values: Racquel 5 year model risk: 4.7%. NCI Lifetime model risk: 19.0%. Prior Study Comparison: 04/02/2021 Bilateral Screening Mammogram, [facility]. 04/13/2022 Bilateral MG 3D screening mammo w/cad, [facility]. Tissue Density: There are scattered fibroglandular densities. Findings: Analyzed By CAD. Left breast: There are 3 groups of heterogenous grouped calcifications in the upper outer aspect left breast. Calcifications are developing over the interval. Biopsy is recommended. Right breast: There are some vague fine calcifications within the right breast. A small indistinct bordered nodule may be nearby. These are in close approximation with vascular structures. This may account for the findings. Short-term follow-up right breast is recommended in 3 months. Reevaluation for earlier diagnostic workup if left breast biopsy is positive for malignancy. Overall Assessment: Suspicious, BI-RAD 4 Management: Stereotactic Core Biopsy of the left breast. Diagnostic Mammogram of the right breast in 3 months. A clinical breast exam by your physician is recommended on an annual basis and results should be correlated with mammographic findings. This exam should not preclude additional follow-up of suspicious palpable abnormalities. Results were given to the patient verbally at the time of exam. Electronically signed and approved by: Clinton Tucker D.O. Radiologis
== END | disposition home or self-care (01) ==
LOC: RADMAMWWP 10:24
PROVIDERS: ATTEND Obstetrics & Gynecology
DX: R92.8 Other abnormal and inconclusive findings on diagnostic imaging of breast (principal); N63.0 Unspecified lump in unspecified breast; Z80.3 Family history of malignant neoplasm of breast; Z78.0 Asymptomatic menopausal state
CPT/HCPCS: 77066; G0279; 77062

== ENCOUNTER → 2022-04-26 | Outpatient (CLI) | payer MEDICARE, OTHER ==
--- NOTE | 2022-04-26 18:16 | US ---
EXAMINATION TYPE: US pelvic complete DATE OF EXAM: 04/26/2022 COMPARISON: NONE CLINICAL HISTORY: 62-year-old female R93.8 ENDOMETRIAL FLUID. , known endometrial fluid for 2 yea rs, no bleeding TECHNIQUE: Transabdominal sonographic images of the pelvis were acquired. Date of LMP: 1995 FINDINGS: EXAM MEASUREMENTS: Uterus: 6.5 x 3.4 x 2.5 cm Endometrial Stripe: 0.2cm Right Ovary: not seen Left Ovary: not seen 1. Uterus: Anteverted and otherwise wnl 2. Endometrium: 0.6cm endo fluid seen toward fundus, 1.0cm endo fluid seen within DC, seem stable f rom previous exam 3. Right Ovary: Obscured by overlying bowel gas 4. Left Ovary: Obscured by overlying bowel gas 5. Bilateral Adnexa: wnl 6. Posterior cul-de-sac: wnl IMPRESSION: Continued fluid distending the uterine cavity up to 1 cm. Etiology unclear based on this exam. Possib le cervical stenosis. Any further evaluation as clinically indicated. Unable to visualize either ovary.
--- NOTE | 2022-04-27 09:41 | P.PN ---
Progress Note - Text Progress Note Date: 04/27/22 OUTPATIENT FOLLOW-UP NOTE TEST(S)/RESULTS: Pap smear done on 04/13/2022 was negative. Screening mammogram done on that day was incomplete and bilateral breast workup was done on 04/21/2022. The left breast had suspicious findings and the right breast will require a follow-up mammogram in 3 months. Pelvic ultrasound done on 04/26/2022 showed an endometrial fluid which was fairly stable from her previous ultrasound. Endometrial thickness was 0.2 cm. METHOD OF NOTIFICATION: The patient was notified by phone. PATIENT COMMENTS: The patient states she has an appointment for a left breast biopsy on 05/06/2022. She will then follow-up with Dr. Antonio Robertson. She denies any postmenopausal bleeding. DIAGNOSIS: Suspicious left breast imaging requiring left breast biopsy. Right breast findings she will requiring three-month follow-up. Negative Pap smear. Stable endometrial fluid with normal endometrial thickness by ultrasound. DISCUSSION: The order slip for a three-month right breast diagnostic mammogram will be mailed to the patient. She is scheduled for a left breast biopsy on 0 05/06/2022. We will plan on repeating the pelvic ultrasound in one year. She was instructed to call if she has any postmenopausal vaginal bleeding. PLAN: As above.
== END | disposition home or self-care (01) ==
LOC: RADUSWWP 13:43
PROVIDERS: ATTEND Obstetrics & Gynecology
DX: R93.89 Abnormal findings on diagnostic imaging of other specified body structures (principal)
CPT/HCPCS: 76856

== ENCOUNTER → 2022-05-06 | Day surgery (SDC) | payer MEDICARE, OTHER ==
[2022-05-06 10:32] VITALS: RESP 16
[2022-05-06 12:19] VITALS: BP 119/59; PULSE 75; TEMP 98.1
--- NOTE | 2022-05-11 10:47 | MM ---
Risk Values: Racquel 5 year model risk: 4.7%. NCI Lifetime model risk: 19.0%. Prior Study Comparison: 04/02/2021 Bilateral Screening Mammogram, [facility]. 04/13/2022 Bilateral MG 3D screening mammo w/cad, [facility]. 04/21/2022 Bilateral MG 3D work up w/cad [facility], [facility]. Pathology Description: Approach: CC FA Needle Type: Eviva Cores: 11 Skin Nicks: 1 Gauge: 9 The procedure of stereotactic guided core biopsy was explained to the patient. Benefits, alternatives, and risks were discussed. An informed consent was then obtained. The shortness pathway for biopsy was chosen. Shortness pathway was a superior approach. I performed the localization, followed by the remainder of the procedure. A vacuum assisted biopsy gun was used to obtain multiple core samples. SITE 1: Multiple specimens from the more lateral group demonstrated minimal calcifications in the specimen mammogram. Retargeting revealed adherent tissue protruding through the biopsy opening. This tissue was also radiographed and revealed the calcifications. As the needle was already pulled back in preparation for repeat sampling, we were unable to place a clip at the site of biopsy. We then moved to the second site. SITE 2: The more medially located calcifications also in the upper outer quadrant are now targeted. Multiple samples are obtained via vacuum assisted biopsy needle. The patient tolerated the procedure well without any immediate complication. The patient was kept in the radiology department for short stay after the procedure and then discharged home in stable condition. Targeted calcifications are identified in specimen mammogram. Post biopsy mammogram shows the clip to have migrated inferiorly by 1.6 cm relative to the targeted area of concern on the preprocedure images for biopsy site #2. Impression: 1. SUCCESSFUL, UNCOMPLICATED STEREOTACTIC GUIDED CORE BIOPSY OF 2 SITES OF MICROCALCIFICATIONS IN THE UPPER OUTER QUADRANT OF THE LEFT BREAST. THESE TWO GROUPS ARE ADJACENT TO EACH OTHER. DUE TO TECHNICAL DIFFICULTY, NO CLIP WAS DEPLOYED AT SITE 1 (MORE LATERALLY LOCATED). NOTE 1.6 CM OF INFERIOR MIGRATION ON THE LATERAL VIEW. 2. CONTINUE WITH THE PLANNED 3 MONTH FOLLOWUP DIAGNOSTIC MAMMOGRAM RIGHT BREAST FOR MICROCALCS. 3. ADDITIONAL 3 MONTH FOLLOWUP DIAGNOSTIC LEFT BREAST MAMMOGRAM TO ASSESS THE 3RD SITE OF MICROCALCIFICATIONS WHICH APPEAR ROUND/PUNCTATE AND PROBABLY BENIGN. THESE WERE NOT BIOPSIED AT THIS TIME. Pathology Results: Result: Benign, Fibroadenomatoid hyperplasia. A. LEFT BREAST SITE A, CORE BIOPSY: Fibroadenomatoid stromal hyperplasia with microcalcification and focal columnar cell change and florid usual ductal hyperplasia. B. LEFT BREAST SITE B, CORE BIOPSY: Fibroadenomatoid stromal hyperplasia with microcalcification and proliferative fibrocystic change with apocrine metaplasia, florid usual ductal hyperplasia and sclerosing adenosis. Pathology Description: Approach: CC FA Needle Type: Eviva Cores: 10 Skin Nicks: 1 Gauge: 9 no clip site A securemark site B. Pathology Results: Result: Benign, Fibroadenomatoid hyperplasia. A. LEFT BREAST SITE A, CORE BIOPSY: Fibroadenomatoid stromal hyperplasia with microcalcification and focal columnar cell change and florid usual ductal hyperplasia. B. LEFT BREAST SITE B, CORE BIOPSY: Fibroadenomatoid stromal hyperplasia with microcalcification and proliferative fibrocystic change with apocrine metaplasia, florid usual ductal hyperplasia and sclerosing adenosis. Overall Assessment: Benign Management: Diagnostic Mammogram of the left breast in 6 months. Electronically signed and approved by: Jenny Villegas M.D. Radiologist
== END ==
LOC: RADMAMWWP 10:19
PROVIDERS: ATTEND Surgery
DX: N62 Hypertrophy of breast (principal); N60.12 Diffuse cystic mastopathy of left breast; N60.82 Other benign mammary dysplasias of left breast; R92.8 Other abnormal and inconclusive findings on diagnostic imaging of breast; R92.1 Mammographic calcification found on diagnostic imaging of breast
CPT/HCPCS: 88305; 19081; 19082; A4648; J2001

== ENCOUNTER → 2022-08-11 | Outpatient (CLI) | payer MEDICARE, OTHER ==
--- NOTE | 2022-08-12 07:07 | MM ---
Reason for Exam: Follow-up at short interval from prior study. Last screening mammogram was performed 4 month(s) ago. Patient History: Menarche at age 12. First Full-Term at age 30. Late child-bearing (after 30). Postmenopausal. Previous Hyperplasia w/o Atypia at age 62. Estrogen for 7 years from age 37 until age 43. Progesterone for 1 year from age 37 until age 38. Hormonal Contraceptives for 1 year from age 22 until age 33. 05/06/2022, Benign MG stereo VAD BX LT on the left side. 05/06/2022, Benign MG stereo VAD BX addl LT on the left side. 11/21/2015, High risk Core Biopsy on the right side. 09/07/2013, Benign Core Biopsy on the left side. Mother had breast cancer, right, age 78. Mother tested for BRCA1 outcome was negative. Risk Values: Racquel 5 year model risk: 4.7%. NCI Lifetime model risk: 19.0%. Tissue Density: There are scattered fibroglandular densities. Findings: Analyzed By CAD. Postprocedural changes of left breast. Benign-appearing calcifications are seen bilaterally. No suspicious masses calcifications, or masses or distortions identified. Overall Assessment: Negative, BI-RAD 1 Management: Screening Mammogram of both breasts in 1 year. A clinical breast exam by your physician is recommended on an annual basis and results should be correlated with mammographic findings. This exam should not preclude additional follow-up of suspicious palpable abnormalities. Results were given to the patient verbally at the time of exam. Electronically signed and approved by: Navin Ramirez DO
== END | disposition home or self-care (01) ==
LOC: RADMAMWWP 14:30
PROVIDERS: ATTEND Surgery
DX: R92.8 Other abnormal and inconclusive findings on diagnostic imaging of breast (principal); Z78.0 Asymptomatic menopausal state; Z80.3 Family history of malignant neoplasm of breast
CPT/HCPCS: 77066; G0279; 77062

== ENCOUNTER → 2023-04-27 | Outpatient (CLI) | payer MEDICARE, OTHER ==
[2023-04-27 11:51] VITALS: BP 118/83; PULSE 89; RESP 18; TEMP 98.7
--- NOTE | 2023-04-27 13:36 | P.HPOB ---
History of Present Illness H&P Date: 04/27/23 Chief Complaint: The patient is here for her routine gynecologic exam. This is a 63-year-old with an LMP of 1995. The patient is without gynecologic complaints and denies any postmenopausal bleeding. The patient has a history of endometrial fluid within the uterine cavity noted by ultrasound. Review of Systems The patient has gained 18 pounds over the last year. She denies respiratory or cardiac problems. GI: Occasional IBS symptoms. : She noticed occasional slight urinary leakage with coughing. This was initially noticed when she had an upper respiratory infection and has been very minimal since then. Past Medical History Past Medical History: Asthma, Fibromyalgia, GERD/Reflux, Hyperlipidemia, Osteoarthritis (OA), Seizure Disorder, Skin Disorder, Sleep Apnea/CPAP/BIPAP, Thyroid Disorder Additional Past Medical History / Comment(s): ECZEMA, HIATAL HERNIA, IBS. 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 No other history of STDs. Tested negative for BRCA1 and 2. History of Any Multi-Drug Resistant Organisms: None Reported Past Surgical History: Breast Surgery, Section, Ear Surgery Additional Past Surgical History / Comment(s): RIGHT EYE surgery for blocked tear duck, deviated septum, SINUS SURGERY X2, RIGHT BREAST LUMPECTOMY, LEFT BREAST biopsy with marker. Colonoscopy with upper endoscopy in 2019(next after 5yr). Past Anesthesia/Blood Transfusion Reactions: Motion Sickness, Postoperative Nausea & Vomiting (PONV) Additional Past Anesthesia/Blood Transfusion Reaction / Comment(s): diff intubation per pt-needs pediatric size for intubation, hx dislocated jaw- limitations for opening mouth. TMJ. diff walking up after general anesthesia Past Psychological History: Anxiety, Depression Smoking Status: Never smoker Past Alcohol Use History: Rare (2 per year.) Past Drug Use History: None Reported Additional Drug Use History / Comment(s): . Additional History: She is . She has not been sexually active since approximate 2014. 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 Hepatitis B, Brother(s) Family Medical History: Hyperlipidemia, Osteoarthritis (OA) Medications and Allergies Home Medications Medication Instructions Recorded Confirmed Type Atorvastatin [Lipitor] 80 mg PO 1800 11/19/15 04/27/23 History Budesonide/Formoterol Fumarate 1 puff IH BID PRN 11/19/15 04/27/23 History [Symbicort 160-4.5 Mcg Inhaler] Citalopram Hydrobromide [CeleXA] 40 mg PO 1800 11/19/15 04/27/23 History Fluticasone Nasal [place] [Flonase 2 spray EA NOSTRIL HS 11/19/15 04/27/23 History Nasal [place]] Montelukast [Singulair] 10 mg PO HS 11/19/15 04/27/23 History Pantoprazole Sodium [Protonix] 40 mg PO DAILY 11/19/15 04/27/23 History Ubidecarenone [Co Q-10] 100 mg PO DAILY PRN 11/19/15 04/27/23 History Vitamin B Complex 1 each PO DAILY 11/19/15 04/27/23 History Calcium Citrate 300 - 600 mg PO Q2D 04/01/16 04/27/23 History Ibuprofen [Motrin] 800 mg PO BID PRN 03/20/19 04/27/23 History Levothyroxine Sodium [Synthroid] 88 mcg PO DAILY 03/20/19 04/27/23 History Cholecalciferol [Vitamin D3 (25 5,000 unit PO 1800 04/09/20 04/27/23 History Mcg = 1000 Iu)] cycloSPORINE [Restasis] 1 drop BOTH EYES BID 04/09/20 04/27/23 History Ascorbic Acid [Vitamin C] 500 mg PO 1800 08/05/20 04/27/23 History Eslicarbazepine Acetate [Aptiom] 600 mg PO HS 08/05/20 04/27/23 History L.acidoph,Paracasei, B.lactis 1 each PO DAILY 08/05/20 04/27/23 History [Probiotic] guaiFENesin [Mucinex] 1,200 mg PO DAILY PRN 08/05/20 04/27/23 History Albuterol Sulfate [Proair 1 puff INHALATION Q6H PRN 04/07/21 04/27/23 History Digihaler] Dicyclomine [Bentyl] 10 mg PO TID PRN 04/07/21 04/27/23 History Vit C/E/Zn/Coppr/Lutein/Zeaxan 1 each PO DAILY 04/22/22 04/27/23 History [Preservision Areds 2 Softgel] Allergies Allergy/AdvReac Type Severity Reaction Status Date / Time Sulfa (Sulfonamide Allergy Rash/Hives Verified 04/27/23 11:48 Antibiotics) thimerosal Allergy Swelling Verified 04/27/23 11:48 erythromycin base AdvReac Abdominal Verified 04/27/23 11:48 Pain metronidazole [From Flagyl] AdvReac Abdominal Verified 04/27/23 11:48 Pain silk tape AdvReac Rash/Hives Uncoded 04/27/23 11:48 Exam Vital Signs Temp Pulse Resp BP Pulse Ox 04/27/23 11:49 98.7 F 89 18 118/83 98 Intake and Output 04/26/23 04/27/23 04/27/23 22:59 06:59 14:59 Other: Weight 115.212 kg Height 5 feet 3 inches, weight 254 pounds, BMI 45.0. This is a well-developed well-nourished heavyset white female who is alert and oriented times 3 in no acute distress. HEENT: Within normal limits. NECK: Supple without mass or thyromegaly. CHEST AND LUNGS: Clear to auscultation. HEART: Regular rate and rhythm. BREASTS: Are without mass or discharge. AXILLARY EXAM: Negative for adenopathy. BACK: Negative for CVA tenderness. ABDOMEN: Soft, obese, nontender, without palpable masses. PELVIC EXAM: Normal external genitalia with mild atrophy. Cervix and vagina appear normal with mild atrophy. There is no unusual discharge. There is no evidence of prolapse. The uterus is midposition, nongravid size and nontender. There are no palpable adnexal masses or tenderness. Bimanual examination is somewhat limited secondary to her size. RECTAL EXAM: Rectovaginal exam is negative for mass or tenderness and is negative for occult blood. EXTREMITIES: Nontender. IMPRESSION: 1. 63-year-old menopausal female with normal gynecologic exam. 2. History of asymptomatic small endometrial fluid with normal endometrial thickness by ultrasound. This was last done on 04/26/2022. 3. Family history of various cancers. The patient underwent genetic cancer testing on 07/21/2022 which was negative for BRCA1 and 2. There were some genetic variance of undetermined significance noted. 4. Mild stress urinary incontinence noted when she had a in upper respiratory infection and was noted with coughing. No significant physical findings on exam today. PLAN: 1. Pap smear was deferred since she had a negative Pap smear on 04/13/2022. This will be repeated after 2-3 years and if that one is negative we will plan on discontinuing Pap smears. 2. Self breast awareness was discussed with the patient. We have also discussed symptoms associated with inflammatory breast cancer. 3. Screening mammogram will be due in July and the order slip was given to the patient for this. 4. Osteoporosis prevention was discussed. I have stressed the importance of adequate calcium, vitamin D and regular exercise. Recommended amounts of calcium and vitamin D were also discussed. 5. Pelvic ultrasound was recommended because of the endometrial fluid noted on previous ultrasound examinations. The order slip was given to the patient for this. 6. [place] exercises were discussed with the patient. She will call if worsening symptoms of bladder incontinence. 7. She was advised to return in one year for her annual well woman exam and as needed.
== END ==
LOC: WWCWWP 11:32
PROVIDERS: ATTEND Obstetrics & Gynecology
DX: Z12.31 Encounter for screening mammogram for malignant neoplasm of breast (principal); R93.89 Abnormal findings on diagnostic imaging of other specified body structures; R39.81 Functional urinary incontinence; J45.909 Unspecified asthma, uncomplicated; M79.7 Fibromyalgia; M19.90 Unspecified osteoarthritis, unspecified site; E78.5 Hyperlipidemia, unspecified; K21.9 Gastro-esophageal reflux disease without esophagitis; G40.909 Epilepsy, unspecified, not intractable, without status epilepticus; E07.9 Disorder of thyroid, unspecified; G47.30 Sleep apnea, unspecified; Z99.89 Dependence on other enabling machines and devices; Z78.0 Asymptomatic menopausal state; Z80.3 Family history of malignant neoplasm of breast; Z88.2 Allergy status to sulfonamides; Z91.048 Other nonmedicinal substance allergy status; Z88.8 Allergy status to other drugs, medicaments and biological substances; Z79.51 Long term (current) use of inhaled steroids; Z79.890 Hormone replacement therapy

== ENCOUNTER → 2023-06-01 | Outpatient (CLI) | payer MEDICARE, OTHER ==
--- NOTE | 2023-06-01 13:55 | US ---
EXAMINATION TYPE: US pelvis complete transvag DATE OF EXAM: 06/01/2023 COMPARISON: NONE CLINICAL INDICATION: Female, 63 years old with history of R93.8 ASYMPTOMATIC MENOPAUSAL STATE; Endo f luid on previous exam. TECHNIQUE: Transvaginal (TV) and Transabdominal (TA) . EXAM MEASUREMENTS: Uterus: 6.8 x 2.2 x 3.8 cm Endometrial Stripe: .6 cm 1. Uterus: Anteverted Fluid visualized in the cervical canal. 2. Endometrium: 1.1 cm of fluid visualized. This was seen on previous exam. 3. Right Ovary: Obscured by overlying bowel gas 4. Left Ovary: Obscured by overlying bowel gas 5. Bilateral Adnexa: wnl 6. Posterior cul-de-sac: wnl Bladder is sonolucent. Posterior wall is unremarkable. IMPRESSION: 1. Persistent fluid filled endometrial canal.
== END | disposition home or self-care (01) ==
LOC: RADUSWWP 13:07
PROVIDERS: ATTEND Obstetrics & Gynecology
DX: R93.89 Abnormal findings on diagnostic imaging of other specified body structures (principal); Z78.0 Asymptomatic menopausal state
CPT/HCPCS: 76830; 76856

== ENCOUNTER → 2023-08-15 | Outpatient (CLI) | payer MEDICARE, OTHER ==
--- NOTE | 2023-08-16 19:10 | MM ---
Reason for Exam: Screening (asymptomatic). Last screening mammogram was performed 12 month(s) ago. Patient History: Menarche at age 12. First Full-Term at age 30. Late child-bearing (after 30). Postmenopausal. Previous Hyperplasia w/o Atypia at age 62. Estrogen for 7 years from age 37 until age 43. Progesterone for 1 year from age 37 until age 38. Hormonal Contraceptives for 1 year from age 22 until age 33. 05/06/2022, Benign MG stereo VAD BX LT on the left side. 05/06/2022, Benign MG stereo VAD BX addl LT on the left side. 11/21/2015, High risk Core Biopsy on the right side. 09/07/2013, Benign Core Biopsy on the left side. Mother had breast cancer, right, age 78. Mother tested for BRCA1 outcome was negative. Risk Values: Racquel 5 year model risk: 4.9%. NCI Lifetime model risk: 18.4%. Prior Study Comparison: 04/13/2022 Bilateral MG 3D screening mammo w/cad, [facility]. 04/21/2022 Bilateral MG 3D work up w/cad [facility], [facility]. 08/11/2022 Bilateral MG 3D diag mammo w/cad [place], [facility]. Tissue Density: There are scattered fibroglandular densities. Findings: Analyzed By CAD. 2 microclips in the left breast from prior biopsies. There is no suspicious group of microcalcifications or new suspicious mass in either breast. Overall Assessment: Benign, BI-RAD 2 Management: Screening Mammogram of both breasts in 1 year. See note below in regards to patient's increased five-year Racquel score. Patient should continue monthly self-breast exams. A clinical breast exam by your physician is recommended on an annual basis. This exam should not preclude additional follow-up of suspicious palpable abnormalities. Note on Racquel scores and lifetime risk: 1. A Racquel score greater than 3% is considered moderate risk. If this is the case, consider specialist referral to assess eligibility for a risk reducing agent. 2. If overall lifetime risk for the development of breast cancer is 20% or higher, the patient may qualify for future screening with alternating mammogram and breast MRI. Electronically signed and approved by: Jenny Villegas M.D. Radiologist
== END | disposition home or self-care (01) ==
LOC: RADMAMWWP 13:12
PROVIDERS: ATTEND Obstetrics & Gynecology
DX: Z12.31 Encounter for screening mammogram for malignant neoplasm of breast (principal); Z78.0 Asymptomatic menopausal state; Z80.3 Family history of malignant neoplasm of breast
CPT/HCPCS: 77063; 77067

== ENCOUNTER → 2023-12-02 | Outpatient (CLI) | payer MEDICARE ==
--- NOTE | 2023-12-02 14:31 | US ---
EXAMINATION TYPE: US pelvis complete transvag DATE OF EXAM: 12/02/2023 COMPARISON: NONE CLINICAL INDICATION: Female, 63 years old with history of R93.8 Endometrial fluid by ultrasound; Foll ow up endometrial fluid TECHNIQUE: Transvaginal (TV) and Transabdominal (TA) . Date of LMP: unknown EXAM MEASUREMENTS: Uterus: 5.7 x 2.1 x 4.0 cm Endometrial Stripe: 0.3 cm Right Ovary: unable to visualize Left Ovary: unable to visualize 1. Uterus: Anteverted 2. Endometrium: fluid noted = 0.2cm 3. Right Ovary: Obscured by overlying bowel gas 4. Left Ovary: Obscured by overlying bowel gas 5. Bilateral Adnexa: appears wnl 6. Posterior cul-de-sac: wnl IMPRESSION: Atrophic uterus. Fluid within the endometrium is nonspecific.
== END | disposition home or self-care (01) ==
LOC: RADUSWWP 13:41
PROVIDERS: ATTEND Obstetrics & Gynecology
DX: R93.89 Abnormal findings on diagnostic imaging of other specified body structures (principal); N85.8 Other specified noninflammatory disorders of uterus
CPT/HCPCS: 76830; 76856

== ENCOUNTER → 2024-06-12 | Outpatient (CLI) | payer MEDICARE ==
[2024-06-12 15:45] VITALS: BP 143/89; PULSE 85; RESP 18; TEMP 98.7
--- NOTE | 2024-06-12 16:40 | P.HPOB ---
History of Present Illness H&P Date: 06/12/24 Chief Complaint: The patient is here for her routine gynecologic exam. This is a 64-year-old G2, P2 with an LMP of 1995. The patient is without gynecologic complaints and denies any postmenopausal bleeding. She has been followed with yearly ultrasounds of the pelvis because of small endometrial fluid noted by ultrasound. Her most recent 1 was done earlier this year and had a normal endometrial thickness with small endometrial fluid. She went for a colonoscopy recently, but has to have it repeated because of an inadequate bowel prep. Review of Systems She has gained about 4 pounds over the past year. She denies respiratory or cardiac problems. GI: Occasional gastric reflux symptoms. Neuro: She is has had some issues with her balance and she is planning to see a neurologist for this. Past Medical History Past Medical History: Asthma, Fibromyalgia, GERD/Reflux, Hyperlipidemia, Osteoarthritis (OA), Seizure Disorder, Skin Disorder, Sleep Apnea/CPAP/BIPAP, Thyroid Disorder Additional Past Medical History / Comment(s): ECZEMA, HIATAL HERNIA, IBS. 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 No other history of STDs. Tested negative for BRCA1 and 2. History of Any Multi-Drug Resistant Organisms: None Reported Past Surgical History: Breast Surgery, Section, Ear Surgery Additional Past Surgical History / Comment(s): RIGHT EYE surgery for blocked tear duck, deviated septum, SINUS SURGERY X2, RIGHT BREAST LUMPECTOMY, LEFT BREAST biopsy with marker. Colonoscopy with upper endoscopy in 2019(next after 5yr). Past Anesthesia/Blood Transfusion Reactions: Motion Sickness, Postoperative Nausea & Vomiting (PONV) Additional Past Anesthesia/Blood Transfusion Reaction / Comment(s): diff intubation per pt-needs pediatric size for intubation, hx dislocated jaw- limitations for opening mouth. TMJ. diff walking up after general anesthesia Past Psychological History: Anxiety, Depression Smoking Status: Never smoker Past Alcohol Use History: Rare (1-5 drinks per year.) Past Drug Use History: None Reported Additional Drug Use History / Comment(s): . Additional History: She is . She has not been sexually active since approximately 2014. 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 Hepatitis B, Brother(s) Family Medical History: Hyperlipidemia, Osteoarthritis (OA) Medications and Allergies Home Medications Medication Instructions Recorded Confirmed Type Atorvastatin [Lipitor] 80 mg PO 1800 11/19/15 06/12/24 History Budesonide/Formoterol Fumarate 1 puff IH BID PRN 11/19/15 06/12/24 History [Symbicort 160-4.5 Mcg Inhaler] Citalopram Hydrobromide [CeleXA] 40 mg PO 1800 11/19/15 06/12/24 History Fluticasone Nasal [place] [Flonase 2 spray EA NOSTRIL HS 11/19/15 06/12/24 History Nasal [place]] Montelukast [Singulair] 10 mg PO HS 11/19/15 06/12/24 History Pantoprazole Sodium [Protonix] 40 mg PO DAILY 11/19/15 06/12/24 History Ubidecarenone [Co Q-10] 100 mg PO DAILY PRN 11/19/15 06/12/24 History Vitamin B Complex 1 each PO DAILY 11/19/15 06/12/24 History Ibuprofen [Motrin] 800 mg PO BID PRN 03/20/19 06/12/24 History Levothyroxine Sodium [Synthroid] 88 mcg PO DAILY 03/20/19 06/12/24 History Cholecalciferol [Vitamin D3 (25 5,000 unit PO 1800 04/09/20 06/12/24 History Mcg = 1000 Iu)] cycloSPORINE [Restasis] 1 drop BOTH EYES BID 04/09/20 06/12/24 History Ascorbic Acid [Vitamin C] 500 mg PO 1800 08/05/20 06/12/24 History Eslicarbazepine Acetate [Aptiom] 600 mg PO HS 08/05/20 06/12/24 History L.acidoph,Paracasei, B.lactis 1 each PO DAILY 08/05/20 06/12/24 History [Probiotic] Albuterol Sulfate [Proair 1 puff INHALATION Q6H PRN 04/07/21 06/12/24 History Digihaler] Dicyclomine [Bentyl] 10 mg PO TID PRN 04/07/21 06/12/24 History Vit C/E/Zn/Coppr/Lutein/Zeaxan 1 each PO DAILY 04/22/22 06/12/24 History [Preservision Areds 2 Softgel] Allergies Allergy/AdvReac Type Severity Reaction Status Date / Time Sulfa (Sulfonamide Allergy Rash/Hives Verified 06/12/24 15:45 Antibiotics) thimerosal Allergy Swelling Verified 06/12/24 15:45 erythromycin base AdvReac Abdominal Verified 06/12/24 15:45 Pain metronidazole [From Flagyl] AdvReac Abdominal Verified 06/12/24 15:45 Pain silk tape AdvReac Rash/Hives Uncoded 06/12/24 15:45 Exam Vital Signs Temp Pulse Resp BP Pulse Ox 06/12/24 15:43 98.7 F 85 18 143/89 97 Intake and Output 06/12/24 06/12/24 06/12/24 06:59 14:59 22:59 Other: Weight 117.027 kg Height 5 feet 3 inches, weight 258 pounds, BMI 45.7. This is a well-developed well-nourished heavyset white female who is alert and oriented times 3 in no acute distress. HEENT: Within normal limits. NECK: Supple without mass or thyromegaly. CHEST AND LUNGS: Clear to auscultation. HEART: Regular rate and rhythm. BREASTS: Are without mass or discharge. AXILLARY EXAM: Negative for adenopathy. BACK: Negative for CVA tenderness. ABDOMEN: Soft, nontender, without palpable masses. PELVIC EXAM: Normal external genitalia with mild atrophy. Cervix and vagina appear normal with mild atrophy. The cervix appears nulliparous and the cervix is somewhat stenotic secondary to atrophy. There is no unusual discharge. There is no evidence of prolapse. The uterus is midposition, nongravid size and nontender. There are no palpable adnexal masses or tenderness. RECTAL EXAM: Rectovaginal exam is negative for mass or tenderness and is negative for occult blood. EXTREMITIES: Nontender. IMPRESSION: 1. 64-year-old menopausal female with normal gynecologic exam. 2. History of small endometrial fluid by ultrasound which is asymptomatic and has been followed with ultrasounds. 3. Family history of breast cancer in her mother. The patient has tested negative for the BRCA mutations. There were 2 variants of undetermined significance found on her genetic testing. PLAN: 1. Pap smear was performed. If this is negative, we will discontinue Pap smears. 2. Self breast awareness was discussed with the patient. We have also discussed symptoms associated with inflammatory breast cancer. 3. Screening mammogram will be due in July 2024. The order slip was given to the patient for this. 4. Osteoporosis prevention was discussed. She had a normal bone density test on 03/19/2021. Will plan on repeating this next year at her annual examination. 5. She is scheduled for a colonoscopy on 06/28/2024. 6. She was advised to return in one year for her annual well woman exam.
== END ==
LOC: WWCWWP 15:30
PROVIDERS: ATTEND Obstetrics & Gynecology
DX: Z01.419 Encounter for gynecological examination (general) (routine) without abnormal findings (principal); Z78.0 Asymptomatic menopausal state; Z80.3 Family history of malignant neoplasm of breast; Z87.42 Personal history of other diseases of the female genital tract; Z88.1 Allergy status to other antibiotic agents; Z88.2 Allergy status to sulfonamides; Z88.8 Allergy status to other drugs, medicaments and biological substances; Z91.048 Other nonmedicinal substance allergy status

== ENCOUNTER → 2024-07-25 | Outpatient (CLI) | payer MEDICARE ==
[2024-07-25 13:25] VITALS: BP 147/99; PULSE 72; RESP 16; TEMP 96.9
--- NOTE | 2024-07-25 14:38 | P.PAINPG ---
PQRS Measure Charge Sheet Comment: HISTORY OF PRESENT ILLNESS: A 64 yr old female as a referral from Dr Alberto presents today w severe and chronic LBP > 3 mo secondary to radiculopathy, spondylosis and facet arthropathy without myelopathy for evaluation. Pt states pain level is provoked at 9 /10 in intensity, constant, localized in the L lumbar spine, predominantly axial, sore in character w occasional shooting pain towards the L hip. Pain is provoked by bending. Pain is alleviated by Aquatherapy x 5 wks which ended in Dec 2023, physician guided home stretches daily since Dec 2023, heat, ice, medications (Ibu, Celebrex), topical Voltaren, repositioning and rest . PMH: OA, Asthma, Fibromyalgia, GERD, Hyperlipidemia, Seizure Disorder, Skin Disorder, ALONA, Delgado's Thyroiditis, Eczema, HH, IBS, MDD/ Anxiety PSH: R Breast Lumpectomy, L Breast Biopsy, , Ear Surgery, Sinus Surgery x2, Colonoscopy/ EGD (2019) SH: Never smoker, Rare ETOH use, No illicit drug use FH: Mo- PE, CA, Breast CA. Fa- Colon CA, HepB. Bro- OA, Hyperlipidemia All: See list Meds: See list REVIEW OF ORGAN SYSTEMS: CONSTITUTIONAL: No fevers or chills. No recent weight loss. NEUROLOGICAL: + numbness and tingling along the distal extremities. No seizure disorders or headaches. MUSCULOSKELETAL: + pain PSYCHIATRIC: Denies current depression or suicidal thoughts. Physical Examinations : Constitutional : Cooperative , not in acute distress . Neurologic : Cranial nerve II to XII intact. No focal neurological deficits. Psychiatric : alert & oriented x 3. Matching mood & appropriate affect. Judgment & insight intact. Musculoskeletal : Cervical Spine Motor strength in the deltoid and biceps: Normal right side. Normal Left side Motor strength biceps and the wrist extensors: Normal right side . Normal left side Motor strength in the triceps muscle: Normal right side. Normal left side Deep tendon reflexes: Normal at the biceps. Normal at Brachioradialis. Normal at triceps Vertebral body tenderness to deep palpation over Cervical facet loading test: positive bilaterally Spurling test: positive bilaterally Neck distraction test: positive bilaterally Mounika sign: positive bilaterally Lumbar spine Motor strength lower extremities ,thigh and legs 5/5 Right side , 5/5 Left side Deep tendon reflexes : Normal Knee Jerk. Normal Ankle Jerk Vertebral body tenderness over Harley Test positive Lumbar facet Loading Test: positive Right / positive Left Range of motion of the lumbar spine Flexion 30 degrees, extension 10 degrees Straight Leg Raise test: Left/ Right positive at degrees Josue test: positive right / positive left. Severe tenderness over the Sacroiliac joint on the Right / Left sides Gaenslen test: positive bilaterally Seated flexion test: positive bilaterally. Sacral spine : Severe tenderness over the Sacroiliac joint: right side / left side Range of motion: Flexion of the lumbar spine <60 degrees Range of motion: Extension of the lumbar spine <20 degrees Gaenslen's Test positive L> R Josue test: positive right side / left side Thigh Thrust Test BL positive Sacral Thrust Test Imaging: MRI non contrast lumbar spine from 06/15/24 reviewed Assessment/ Plan : L Sacroiliitis, Lumbar radiculopathy Recommendation of BL SI injection #1. Risks, benefits of procedure discussed and patient verbalized understanding. Admits to anti- coagulant use or medical history of diabetes. Protocol for discontinuation/ continuation of medications oh procedure discussed. All questions answered. I have spent greater than 30 minutes on patient care today. Dr Cortes was available by phone for the evaluation of this patient. The time was used to review the medical records including relevant urine studies and Prescription history (MAPs), review of the available imaging, evaluation and examination of the patient, coordination of care with the medical staff and if applicable referring physicians, as well as creation of the medical record PQRS Narrative: Smoking Status Never smoker Home Medications: Ambulatory Orders Atorvastatin [Lipitor] 80 mg PO 1800 11/19/15 Budesonide/Formoterol Fumarate [Symbicort 160-4.5 Mcg Inhaler] 1 puff IH BID PRN 11/19/15 Citalopram Hydrobromide [CeleXA] 40 mg PO 1800 11/19/15 Fluticasone Nasal [place] [Flonase Nasal [place]] 2 spray EA NOSTRIL HS 11/19/15 Montelukast [Singulair] 10 mg PO HS 11/19/15 Pantoprazole Sodium [Protonix] 40 mg PO DAILY 11/19/15 Ubidecarenone [Co Q-10] 100 mg PO DAILY PRN 11/19/15 Vitamin B Complex 1 each PO DAILY 11/19/15 Ibuprofen [Motrin] 800 mg PO BID PRN 03/20/19 Levothyroxine Sodium [Synthroid] 88 mcg PO DAILY 03/20/19 Cholecalciferol [Vitamin D3 (25 Mcg = 1000 Iu)] 5,000 unit PO 1800 04/09/20 cycloSPORINE [Restasis] 1 drop BOTH EYES BID 04/09/20 Ascorbic Acid [Vitamin C] 500 mg PO 1800 08/05/20 Eslicarbazepine Acetate [Aptiom] 600 mg PO HS 08/05/20 L.acidoph,Paracasei, B.lactis [Probiotic] 1 each PO DAILY 08/05/20 Albuterol Sulfate [Proair Digihaler] 1 puff INHALATION Q6H PRN 04/07/21 Dicyclomine [Bentyl] 10 mg PO TID PRN 04/07/21 Vit C/E/Zn/Coppr/Lutein/Zeaxan [Preservision Areds 2 Softgel] 1 each PO DAILY 04/22/22 Controlled Substance Measures - Controlled Substance Measures Is patient prescribed a controlled substance at discharge?: No
== END ==
LOC: PNWHC3 13:04
PROVIDERS: ATTEND Specialist
CPT/HCPCS: 99211

== ENCOUNTER 2024-08-14 13:42 | Day surgery (SDC) | payer MEDICARE ==
[2024-08-10 12:38] VITALS: BMI 44.8
[~2024-08-14 13:42] MED LIST changes: -LIDOCAINE 1% (10MG/ML) FOR IV START INTRADERMA PRN
[2024-08-14 14:22] VITALS: TEMP 96.5
[2024-08-14] MEDS ORDERED: ROPIVACAINE 5MG/ML 20ML VIAL ONE (14:44)
[2024-08-14] MEDS ORDERED: IOPAMIDOL M200 10 ML VIAL ONE (14:44)
--- NOTE | 2024-08-14 14:53 | P.PCN ---
Date of Procedure: 08/14/24 Procedure(s) Performed: Procedure= bilateral sacroiliac joints steroid injection under fluoroscopy guidance (fluoroscopy image stored on file in the radiology Department ) Preoperative diagnosis= 1-bilateral sacroiliitis 2-lumbar degenerative disc disease 3-lumbar facet arthropathy Postoperative diagnosis=Same as preop Diagnosis . Complication = none Condition= stable Anesthesia= local anesthesia with ropivacaine 0.5% 4 ml only Indication for the procedure= patient complaining of low back pain , examination was positive for severe tenderness over the sacroiliac joints bilaterally and patient diagnosed with sacroiliitis, for this reason she was good candidate for sacroiliac joint steroid injection. Description of the procedure= procedure risk and benefits discussed with the patient, including but not limited, risk of infection and bleeding, and ALLERGIC reaction to the medication and not complete pain relief and patient agreed with the preceding patient taken to the operating room, placed in prone position or standard monitors applied to the patient then after induction of anesthesia back prepped with chlorhexidine 3 times , Then under strict sterile technique, first I did the right sacroiliac joint the which was identified under fluoroscopy guidance been local infiltration of the skin and subcu interstitial with lidocaine 1% then 22-gauge 5 inch Quincke Needle advanced slowly under fluoroscopy and placed in the right sacroiliac joint needle placement confirmed with AP and oblique and lateral view, then after that Isovue 200 one mL injected which confirmed the correct needle placement with the appropriate arthrogram of the sacroiliac joint, and after appropriate needle placement confirmed and after negative aspiration, or heme , then Ropivacaine 0.5% 2 mL, and 40 mg of Depo-Medrol mixed together and injected in the right sacroiliac joint after negative aspiration patient tolerated the procedure well without any complication. Then the left sacroiliac joint steroid injection done under strict sterile technique local infiltration of the skin and subcu interstitial at the location of the left sacroiliac joint then a 22-gauge 5 inches long Quincke Needle advanced slowly under fluoroscopy time placed in the left sacroiliac joint, needle placement confirmed with AP and oblique and lateral view then after appropriate needle placement confirmed, with the AP and oblique and lateral then after negative aspiration Isovue 200 1 mL injected showed arthropathy of the left sacroiliac joint, and after negative aspiration 0.5% Ropivacaine 2 mL and 40 mg of Depo-Medrol injected in the left sacroiliac joint after negative aspiration patient tolerated the procedure well that any complications and she will follow up in clinic 3 weeks
[2024-08-14 15:15] VITALS: BP 127/69; PULSE 79; RESP 22
--- NOTE | 2024-08-15 08:13 | FL ---
Fluoroscopy History: PAIN talita si joint ster inj fl time 13.1 secs dap [id number] [facility], , 08/15/2024 8:11 AM
== END 2024-08-14 15:29 ==
LOC: ORPAIN 13:42
PROVIDERS: ATTEND Specialist
DX: M46.1 Sacroiliitis, not elsewhere classified (principal); M46.96 Unspecified inflammatory spondylopathy, lumbar region; Z88.7 Allergy status to serum and vaccine; Z88.2 Allergy status to sulfonamides
CPT/HCPCS: 62322; Q9966; J2795; G0260

== ENCOUNTER → 2024-08-22 | Outpatient (CLI) | payer MEDICARE ==
--- NOTE | 2024-08-27 09:00 | MM ---
Reason for Exam: Screening (asymptomatic). Last screening mammogram was performed 12 month(s) ago. Patient History: Menarche at age 12. First Full-Term at age 30. Late child-bearing (after 29). Postmenopausal. Previous Hyperplasia w/o Atypia at age 62. Patient tested for BRCA1 outcome was negative. Estrogen for 7 years from age 37 until age 43. Progesterone for 1 year from age 37 until age 38. Hormonal Contraceptives for 1 year from age 22 until age 33. 05/06/2022, Benign MG stereo VAD BX LT on the left side. 05/06/2022, Benign MG stereo VAD BX addl LT on the left side. 11/21/2015, High risk Core Biopsy on the right side. 09/07/2013, Benign Core Biopsy on the left side. Mother had breast cancer, right, age 78. Risk Values: Racquel 5 year model risk: 5.0%. NCI Lifetime model risk: 17.8%. Prior Study Comparison: 04/21/2022 Bilateral MG 3D work up w/cad [facility]. 08/11/2022 Bilateral MG 3D diag mammo w/cad [facility]. 08/15/2023 Bilateral MG 3D screening mammo w/cad, [facility]. Tissue Density: There are scattered areas of fibroglandular density. Findings: Analyzed By CAD. Left breast biopsy clip. Right breast: There is no suspicious group of microcalcifications or new suspicious mass. Left breast: There is no suspicious group of microcalcifications or new suspicious mass. Benign-appearing calcifications left breast. Overall Assessment: Benign, BI-RAD 2 Management: Screening Mammogram of both breasts in [address] [facility] will attempt to contact patient to return for supplemental views and ultrasound if indicated. Patient should continue monthly self-breast exams. A clinical breast exam by your physician is recommended on an annual basis. This exam should not preclude additional follow-up of suspicious palpable abnormalities. Note on Racquel scores and lifetime risk: 1. A Racquel score greater than 3% is considered moderate risk. If this is the case, consider specialist referral to assess eligibility for a risk reducing agent. 2. If overall lifetime risk for the development of breast cancer is 20% or higher, the patient may qualify for future screening with alternating mammogram and breast MRI. [facility], , 08/27/2024 8:57 AM. Electronically signed and approved by: Navin Ramirez DO
== END | disposition home or self-care (01) ==
LOC: RADMAMWWP 11:16
PROVIDERS: ATTEND Obstetrics & Gynecology
DX: Z12.31 Encounter for screening mammogram for malignant neoplasm of breast (principal); Z78.0 Asymptomatic menopausal state; Z80.3 Family history of malignant neoplasm of breast; R92.323 Mammographic fibroglandular density, bilateral breasts
CPT/HCPCS: 77063; 77067

== ENCOUNTER → 2024-09-05 | Outpatient (CLI) | payer MEDICARE ==
[2024-09-05 13:18] VITALS: BP 127/80; PULSE 80; RESP 16
--- NOTE | 2024-09-05 14:44 | P.PAINPG ---
PQRS Measure Charge Sheet Comment: HISTORY OF PRESENT ILLNESS: A 64 yr old female presents today w severe and chronic LBP > 3 mo secondary to radiculopathy, spondylosis and facet arthropathy without myelopathy for evaluation s/p BL SI injection #1. Pt states she experienced 75 % pain relief x 3 wks s/p procedure. Pt states pain level is provoked at 3 /10 in intensity, constant, localized in the L lumbar spine, predominantly axial, sore in character w occasional shooting pain towards the L hip. Pain is provoked by bending. Pain is alleviated by Aquatherapy x 5 wks which ended in Dec 2023, physician guided home stretches daily since Dec 2023, heat, ice, medications, topical, repositioning and rest . Interventional procedures include BL SI injection x1 Medications include Ibu, Celebrex, Voltaren Gel REVIEW OF ORGAN SYSTEMS: CONSTITUTIONAL: No fevers or chills. No recent weight loss. NEUROLOGICAL: + numbness and tingling along the distal extremities. No seizure disorders or headaches. MUSCULOSKELETAL: + pain PSYCHIATRIC: Denies current depression or suicidal thoughts. Physical Examinations : Constitutional : Cooperative , not in acute distress . Neurologic : Cranial nerve II to XII intact. No focal neurological deficits. Psychiatric : alert & oriented x 3. Matching mood & appropriate affect. Judgment & insight intact. Musculoskeletal : Cervical Spine Motor strength in the deltoid and biceps: Normal right side. Normal Left side Motor strength biceps and the wrist extensors: Normal right side . Normal left side Motor strength in the triceps muscle: Normal right side. Normal left side Deep tendon reflexes: Normal at the biceps. Normal at Brachioradialis. Normal at triceps Vertebral body tenderness to deep palpation over Cervical facet loading test: positive bilaterally Spurling test: positive bilaterally Neck distraction test: positive bilaterally Mounika sign: positive bilaterally Lumbar spine Motor strength lower extremities ,thigh and legs 5/5 Right side , 5/5 Left side Deep tendon reflexes : Normal Knee Jerk. Normal Ankle Jerk Vertebral body tenderness over Harley Test positive Lumbar facet Loading Test: positive Right / positive Left Range of motion of the lumbar spine Flexion 30 degrees, extension 10 degrees Straight Leg Raise test: Left/ Right positive at degrees Josue test: positive right / positive left. Severe tenderness over the Sacroiliac j oint on the Right / Left sides Gaenslen test: positive bilaterally Seated flexion test: positive bilaterally. Sacral spine : Severe tenderness over the Sacroiliac joint: right side / left side Range of motion: Flexion of the lumbar spine <60 degrees Range of motion: Extension of the lumbar spine <20 degrees Gaenslen's Test positive L> R Josue test: positive right side / left side Thigh Thrust Test BL positive Sacral Thrust Test Imaging: MRI non contrast lumbar spine from 06/15/24 reviewed Assessment/ Plan : BL Sacroiliitis, Lumbar radiculopathy Will manage residual pain and may RTC on an as needed basis. Celebrex 200mg #30, Diclofenac Gel w 1 RF. Use, side effects, adverse reactions, safe storage discussed. All questions answered. I have spent greater than 30 minutes on patient care today. Dr Seay was available by phone for the evaluation of this patient. The time was used to review the medical records including relevant urine studies and Prescription history (MAPs), review of the available imaging, evaluation and examination of the patient, coordination of care with the medical staff and if applicable referring physicians, as well as creation of the medical record PQRS Narrative: Smoking Status Never smoker Hx Alcohol Use (MH) No Home Medications: Ambulatory Orders Atorvastatin [Lipitor] 80 mg PO 1800 11/19/15 Budesonide/Formoterol Fumarate [Symbicort 160-4.5 Mcg Inhaler] 1 puff IH BID PRN 11/19/15 Citalopram Hydrobromide [CeleXA] 40 mg PO 1800 11/19/15 Fluticasone Nasal [place] [Flonase Nasal [place]] 2 spray EA NOSTRIL HS 11/19/15 Montelukast [Singulair] 10 mg PO HS 11/19/15 Pantoprazole Sodium [Protonix] 40 mg PO DAILY 11/19/15 Levothyroxine Sodium [Synthroid] 88 mcg PO DAILY 03/20/19 Cholecalciferol [Vitamin D3 (25 Mcg = 1000 Iu)] 5,000 unit PO 1800 04/09/20 cycloSPORINE [Restasis] 1 drop BOTH EYES BID 04/09/20 Ascorbic Acid [Vitamin C] 500 mg PO 1800 08/05/20 Eslicarbazepine Acetate [Aptiom] 600 mg PO HS 08/05/20 L.acidoph,Paracasei, B.lactis [Probiotic] 1 each PO DAILY 08/05/20 Albuterol Sulfate [Proair Digihaler] 1 puff INHALATION Q6H PRN 04/07/21 Vit C/E/Zn/Coppr/Lutein/Zeaxan [Preservision Areds 2 Softgel] 1 each PO DAILY 04/22/22 Multivit with Calcium,Iron,Min [Women's Multivitamin] 1 each PO DAILY 08/10/24 Loratadine [Claritin] 10 mg PO DAILY 08/14/24 methocarbamoL [Robaxin-750] 750 mg PO BID PRN 08/14/24 Celecoxib [CeleBREX] 200 mg PO BID 30 Days #60 cap 09/05/24 Diclofenac Sodium Gel [Voltaren 1% Gel] 50 gm TOPICAL BID 30 Days #1 each 09/05/24 Controlled Substance Measures - Controlled Substance Measures Is patient prescribed a controlled substance at discharge?: No
== END ==
LOC: PNWHC3 12:56
PROVIDERS: ATTEND Specialist
DX: M47.26 Other spondylosis with radiculopathy, lumbar region (principal); M46.1 Sacroiliitis, not elsewhere classified; Z88.2 Allergy status to sulfonamides; Z88.1 Allergy status to other antibiotic agents; Z88.8 Allergy status to other drugs, medicaments and biological substances; Z91.048 Other nonmedicinal substance allergy status
CPT/HCPCS: 99211

== ENCOUNTER → 2024-10-17 | Outpatient (CLI) | payer MEDICARE ==
[2024-10-17 16:28] VITALS: BP 115/88; PULSE 82; RESP 16; TEMP 97.7
--- NOTE | 2024-10-17 16:43 | P.PAINPG ---
PQRS Measure Charge Sheet Comment: HISTORY OF PRESENT ILLNESS: A 64 yr old female presents today w severe and chronic LBP > 3 mo secondary to radiculopathy, spondylosis and facet arthropathy without myelopathy for evaluation. Pt states pain level is provoked at 3 /10 in intensity, constant, localized in the L lumbar spine, predominantly axial, sore in character w occasional shooting pain towards the L hip. Pain is provoked by bending. Pain is alleviated by Aquatherapy x 5 wks which ended in Dec 2023, physician guided home stretches daily since Dec 2023, heat, ice, medications, topical, repositioning and rest . Interventional procedures include BL SI injection x1 (Jul 2024) Medications include Ibu, Celebrex, Voltaren Gel REVIEW OF ORGAN SYSTEMS: CONSTITUTIONAL: No fevers or chills. No recent weight loss. NEUROLOGICAL: + numbness and tingling along the distal extremities. No seizure disorders or headaches. MUSCULOSKELETAL: + pain PSYCHIATRIC: Denies current depression or suicidal thoughts. Physical Examinations : Constitutional : Cooperative , not in acute distress . Neurologic : Cranial nerve II to XII intact. No focal neurological deficits. Psychiatric : alert & oriented x 3. Matching mood & appropriate affect. Judgment & insight intact. Musculoskeletal : Cervical Spine Motor strength in the deltoid and biceps: Normal right side. Normal Left side Motor strength biceps and the wrist extensors: Normal right side . Normal left side Motor strength in the triceps muscle: Normal right side. Normal left side Deep tendon reflexes: Normal at the biceps. Normal at Brachioradialis. Normal at triceps Vertebral body tenderness to deep palpation over Cervical facet loading test: positive bilaterally Spurling test: positive bilaterally Neck distraction test: positive bilaterally Mounika sign: positive bilaterally Lumbar spine Motor strength lower extremities ,thigh and legs 5/5 Right side , 5/5 Left side Deep tendon reflexes : Normal Knee Jerk. Normal Ankle Jerk Vertebral body tenderness over L5 Harley Test positive Lumbar facet Loading Test: positive Right / positive Left Range of motion of the lumbar spine Flexion 30 degrees, extension 10 degrees Straight Leg Raise test: Left/ Right positive at < 35 degrees Josue test: positive right / positive left. Severe tenderness over the Sacroiliac joint on the Right / Left sides Gaenslen test: positive bilaterally Seated flexion test: positive bilaterally. Sacral spine : Severe tenderness over the Sacroiliac joint: right side / left side Range of motion: Flexion of the lumbar spine <60 degrees Range of motion: Extension of the lumbar spine <20 degrees Gaenslen's Test positive L> R Josue test: positive right side / left side Thigh Thrust Test BL positive Sacral Thrust Test Imaging: MRI non contrast lumbar spine from 06/15/24 reviewed Assessment/ Plan : BL Sacroiliitis, Lumbar radiculopathy Recommendation of R TFESI L4-L5/ L5-S1 #1. Risks, benefits of procedure discussed and patient verbalized understanding. Protocol for discontinuation/continuation of medication surrounding procedure discussed. All questions answered. I have spent greater than 30 minutes on patient care today. Dr Seay was available by phone for the evaluation of this patient. The time was used to review the medical records including relevant urine studies and Prescription history (MAPs), review of the available imaging, evaluation and examination of the patient, coordination of care with the medical staff and if applicable referring physicians, as well as creation of the medical record PQRS Narrative: Smoking Status Never smoker Hx Alcohol Use (MH) No Home Medications: Ambulatory Orders Atorvastatin [Lipitor] 80 mg PO 1800 11/19/15 Budesonide/Formoterol Fumarate [Symbicort 160-4.5 Mcg Inhaler] 1 puff IH BID PRN 11/19/15 Citalopram Hydrobromide [CeleXA] 40 mg PO 1800 11/19/15 Fluticasone Nasal [place] [Flonase Nasal [place]] 2 spray EA NOSTRIL HS 11/19/15 Montelukast [Singulair] 10 mg PO HS 11/19/15 Pantoprazole Sodium [Protonix] 40 mg PO DAILY 11/19/15 Levothyroxine Sodium [Synthroid] 88 mcg PO DAILY 03/20/19 Cholecalciferol [Vitamin D3 (25 Mcg = 1000 Iu)] 2,000 unit PO 1800 04/09/20 cycloSPORINE [Restasis] 1 drop BOTH EYES BID 04/09/20 Ascorbic Acid [Vitamin C] 500 mg PO 1800 08/05/20 Eslicarbazepine Acetate [Aptiom] 600 mg PO HS 08/05/20 Albuterol Sulfate [Proair Digihaler] 1 puff INHALATION Q6H PRN 04/07/21 Vit C/E/Zn/Coppr/Lutein/Zeaxan [Preservision Areds 2 Softgel] 1 each PO DAILY 04/22/22 Multivit with Calcium,Iron,Min [Women's Multivitamin] 1 each PO DAILY 08/10/24 Loratadine [Claritin] 10 mg PO DAILY 08/14/24 methocarbamoL [Robaxin-750] 750 mg PO BID PRN 08/14/24 Celecoxib [CeleBREX] 200 mg PO BID 30 Days #60 cap 09/05/24 Diclofenac Sodium Gel [Voltaren 1% Gel] 50 gm TOPICAL BID 30 Days #1 each 09/05/24 Cyclobenzaprine [Flexeril] 5 mg PO TID PRN 10/17/24 Controlled Substance Measures - Controlled Substance Measures Is patient prescribed a controlled substance at discharge?: Yes When asked, does pt state using other controlled substances?: No If prescribed controlled substance>3 days was MAPS reviewed?: Prescribed <3 Days
== END ==
LOC: PNWHC3 14:00
PROVIDERS: ATTEND Specialist
DX: M54.16 Radiculopathy, lumbar region (principal); M46.1 Sacroiliitis, not elsewhere classified; Z88.2 Allergy status to sulfonamides; Z88.1 Allergy status to other antibiotic agents; Z91.09 Other allergy status, other than to drugs and biological substances; Z88.8 Allergy status to other drugs, medicaments and biological substances
CPT/HCPCS: 99211

== ENCOUNTER → 2024-11-21 | Outpatient (CLI) | payer MEDICARE ==
[2024-11-21 13:08] VITALS: BP 129/84; PULSE 85; RESP 16; TEMP 96.8
--- NOTE | 2024-11-21 14:36 | P.PAINPG ---
PQRS Measure Charge Sheet Comment: HISTORY OF PRESENT ILLNESS: A 64 yr old female presents today w severe and chronic LBP > 3 mo secondary to radiculopathy, spondylosis and facet arthropathy without myelopathy for evaluation s/p R TFESI L4-L5/ L5-S1 #1. Pt states sh experienced 95 % pain relief x 2 wks s/p procedure. Pt states pain level is provoked at 4-6 /10 in intensity, intermittent, localized in the left lumbar spine, predominantly axial, sore in character w occasional shooting pain towards the left hip, buttock and thigh. Pain is provoked by bending and over activity. Pain is alleviated by Aquatherapy x 5 wks which ended in Dec 2023, physician guided home stretches daily since Dec 2023, heat, ice, medications, topical, repositioning and rest . Interventional procedures include BL SI injection x1 (Jul 2024), R TFESI L4-L5/ L5-S1 x1 (11/20) Medications include Ibu, Celebrex, Voltaren Gel REVIEW OF ORGAN SYSTEMS: CONSTITUTIONAL: No fevers or chills. No recent weight loss. NEUROLOGICAL: + numbness and tingling along the distal extremities. No seizure disorders or headaches. MUSCULOSKELETAL: + pain PSYCHIATRIC: Denies current depression or suicidal thoughts. Physical Examinations : Constitutional : Cooperative , not in acute distress . Neurologic : Cranial nerve II to XII intact. No focal neurological deficits. Psychiatric : alert & oriented x 3. Matching mood & appropriate affect. Judgment & insight intact. Musculoskeletal : Cervical Spine Motor strength in the deltoid and biceps: Normal right side. Normal Left side Motor strength biceps and the wrist extensors: Normal right side . Normal left side Motor strength in the triceps muscle: Normal right side. Normal left side Deep tendon reflexes: Normal at the biceps. Normal at Brachioradialis. Normal at triceps Vertebral body tenderness to deep palpation over Cervical facet loading test: positive bilaterally Spurling test: positive bilaterally Neck distraction test: positive bilaterally Mounika sign: positive bilaterally Lumbar spine Motor strength lower extremities ,thigh and legs 5/5 Right side , 5/5 Left side Deep tendon reflexes : Normal Knee Jerk. Normal Ankle Jerk Vertebral body tenderness over L4 Harley Test positive L L3-L4/ L4-L5 Lumbar facet Loading Test: positive Right / positive Left Range of motion of the lumbar spine Flexion 30 degrees, extension 10 degrees Straight Leg Raise test: Left/ Right positive at < 35 degrees Josue test: positive right / positive left. Severe tenderness over the Sacroiliac joint on the Right / Left sides Gaenslen test: positive bilaterally Seated flexion test: positive bilaterally. Sacral spine : Severe tenderness over the Sacroiliac joint: right side / left side Range of motion: Flexion of the lumbar spine <60 degrees Range of motion: Extension of the lumbar spine <20 degrees Gaenslen's Test positive L> R Josue test: positive right side / left side Thigh Thrust Test BL positive Sacral Thrust Test Imaging: MRI non contrast lumbar spine from 06/15/24 reviewed Assessment/ Plan : BL Sacroiliitis, Lumbar radiculopathy Recommendation of L TFESI L3-L4/ L4-L5 #2. Risks, benefits of procedure discussed and patient verbalized understanding. Protocol for discontinuation/continuation of medication surrounding procedure discussed. All questions answered. I have spent greater than 30 minutes on patient care today. Dr Seay was available by phone for the evaluation of this patient. The time was used to review the medical records including relevant urine studies and Prescription history (MAPs), review of the available imaging, evaluation and examination of the patient, coordination of care with the medical staff and if applicable referring physicians, as well as creation of the medical record PQRS Narrative: Smoking Status Never smoker Hx Alcohol Use (MH) No Home Medications: Ambulatory Orders Atorvastatin [Lipitor] 80 mg PO 1800 11/19/15 Budesonide/Formoterol Fumarate [Symbicort 160-4.5 Mcg Inhaler] 1 puff IH BID PRN 11/19/15 Citalopram Hydrobromide [CeleXA] 40 mg PO 1800 11/19/15 Fluticasone Nasal [place] [Flonase Nasal [place]] 2 spray EA NOSTRIL HS 11/19/15 Montelukast [Singulair] 10 mg PO HS 11/19/15 Pantoprazole Sodium [Protonix] 40 mg PO DAILY 11/19/15 Levothyroxine Sodium [Synthroid] 88 mcg PO DAILY 03/20/19 Cholecalciferol [Vitamin D3 (25 Mcg = 1000 Iu)] 2,000 unit PO 1800 04/09/20 cycloSPORINE [Restasis] 1 drop BOTH EYES BID 04/09/20 Ascorbic Acid [Vitamin C] 500 mg PO 1800 08/05/20 Eslicarbazepine Acetate [Aptiom] 600 mg PO HS 08/05/20 Albuterol Sulfate [Proair Digihaler] 1 puff INHALATION Q6H PRN 04/07/21 Vit C/E/Zn/Coppr/Lutein/Zeaxan [Preservision Areds 2 Softgel] 1 each PO DAILY 04/22/22 Multivit with Calcium,Iron,Min [Women's Multivitamin] 1 each PO DAILY 08/10/24 Loratadine [Claritin] 10 mg PO DAILY PRN 08/14/24 methocarbamoL [Robaxin-750] 750 mg PO BID PRN 08/14/24 Diclofenac Sodium Gel [Voltaren 1% Gel] 50 gm TOPICAL BID 30 Days #1 each 09/05/24 diazePAM [Valium] 5 mg PO DAILY 1 Days #2 tab 10/17/24 Celecoxib [CeleBREX] 200 mg PO BID PRN 11/06/24 Tirzepatide [Zepbound] 2.5 mg SQ FR 11/06/24 Cyclobenzaprine [Flexeril] 5 mg PO TID PRN 30 Days #90 tab 11/08/24 Controlled Substance Measures - Controlled Substance Measures Is patient prescribed a controlled substance at discharge?: No
== END ==
LOC: PNWHC3 12:32
PROVIDERS: ATTEND Specialist
DX: M54.16 Radiculopathy, lumbar region (principal); M46.1 Sacroiliitis, not elsewhere classified; Z88.2 Allergy status to sulfonamides; Z88.3 Allergy status to other anti-infective agents; Z88.1 Allergy status to other antibiotic agents; Z91.048 Other nonmedicinal substance allergy status
CPT/HCPCS: 99212

== ENCOUNTER 2024-12-14 13:13 | Day surgery (SDC) | payer MEDICARE ==
[2024-12-14 13:41] VITALS: TEMP 97.6
[2024-12-14 13:50] LABS: Glucose,Whole Blood 100 mg/dL (70-110)
[2024-12-14] MEDS ORDERED: methylPREDNISolone ACETATE 80 MG/ML 1 ML VIAL ONE (13:52)
[2024-12-14] MEDS ORDERED: IOPAMIDOL M200 10 ML VIAL ONE (13:52)
--- NOTE | 2024-12-14 14:10 | P.PCN ---
Date of Procedure: 12/14/24 Procedure(s) Performed: PREOPERATIVE DIAGNOSIS: 1-Lumbar radiculopathy . POSTOPERATIVE DIAGNOSIS: 1-lumbar radiculopathy. PROCEDURE 1. Transforaminal epidural steroid injection under fluoroscopic guidance at Left L3-4 , and left L4-5 level. (Fluoroscopy images in the radiology Department ) 2. Lumbar epidurogram . ANESTHESIA: Local with 1% lidocaine 3 ml. EBL: Minimal PROCEDURE INDICATION: The patient with low back pain and radiculopathy symptoms unresponsive to conservative treatment. PROCEDURE DESCRIPTION / TECHNIQUE: The patient was seen and identified in the preoperative area. Risks, benefits, complications, and alternatives were discussed with the patient. The patient agreed to proceed with the procedure and signed the consent. IV was started, and vital signs were stable. Patient was taken to the OR and time out was completed. The patient was placed in the prone position on procedure table and a pillow was placed under the abdomen to reduce lumbar lordosis. The lumbosacral area was prepped and draped in the usual sterile fashion. Critical pause was taken. Vital signs were closely monitored during the procedure. Using oblique fluoroscopy, the chin of the `JuliusConstantine dog at Left L4-5 level was identified, and the skin and deeper tissues just below was localized with 1% li docaine. Subsequently, a 22-gauge 5-inch spinal needle was advanced under a tunneled view fluoroscopic guidance just underneath the chin of the `Osmaniy dog at the right L4-5 Under lateral fluoroscopy, the needle was then advanced to the posterior border of the interforaminal space. After negative aspiration of CSF and blood and with no paresthesias, 1 mL Isovue 200 contrast dye was injected excellent epidurogram and outlining of the nerve root Subsequently, 3 mL of block solution containing 40 mg Depo-Medrol and 2 mL of 0.9% normal saline PF was injected. Needle was removed and the same procedure was repeated at the Left L3-4 . At the end of the procedure, skin was cleansed, and bandages were applied. COMPLICATIONS:none DISPOSITION / PLANS: The patient was placed in a supine position and transferred to the recovery area in a stable condition for observation. There was no evidence of lower extremity motor or sensory deficit after the procedure. Patient was discharged from the recovery room after meeting discharge criteria. Home discharge instructions were given to the patient by the staff. The patient was reexamined prior to discharge.
--- NOTE | 2024-12-14 14:25 | FL ---
EXAMINATION TYPE: FL guided pain mgmt statistic DATE OF EXAM: 12/14/2024 CLINICAL HISTORY: Low back pain. TECHNIQUE: Fluoroscopy. COMPARISON: None. FINDINGS: Fluoroscopic guidance was provided during pain relief procedure performed by Dr. Cortes . A total of 29 seconds of fluoroscopic time was utilized during the procedure and two spot images a re acquired. Images acquired shows needle localization . IMPRESSION: As Above. [facility], , 12/14/2024 2:23 PM
[2024-12-14 14:31] VITALS: BP 126/87; PULSE 77; RESP 17
== END 2024-12-14 14:38 | disposition home or self-care (01) ==
LOC: ORPAIN 13:13
PROVIDERS: ATTEND Specialist
DX: M54.16 Radiculopathy, lumbar region (principal); Z88.1 Allergy status to other antibiotic agents; Z88.2 Allergy status to sulfonamides; Z88.7 Allergy status to serum and vaccine
CPT/HCPCS: 64483; 64484; Q9966; J1010

== ENCOUNTER → 2025-01-03 | Outpatient (CLI) | payer MEDICARE ==
[2025-01-03 13:56] VITALS: BP 109/76; PULSE 98; RESP 18; TEMP 97.7
--- NOTE | 2025-01-03 15:50 | P.PAINPG ---
PQRS Measure Charge Sheet Comment: HISTORY OF PRESENT ILLNESS: A 64 yr old female presents today w severe and chronic LBP > 3 mo secondary to radiculopathy, spondylosis and facet arthropathy without myelopathy for evaluation s/p L TFESI L3-L4/ L4-L5 #2. Pt states sh experienced 95 % pain relief x 2-3 wks s/p procedure. Pt states pain level is provoked at 2-3 /10 in intensity, intermittent, localized in the left lumbar spine, predominantly axial, sore in character w occasional shooting pain towards the left hip, buttock and thigh. Pain is provoked by bending and over activity. Pain is alleviated by Aquatherapy x 5 wks which ended in Dec 2023, physician guided home stretches daily since Dec 2023, heat, ice, medications, topical, repositioning and rest . Interventional procedures include BL SI injection x1 (Jul 2024), R TFESI L4-L5/ L5-S1 x1 (11/20), L TFESI L3-L4/ L4-L5 x1 Medications include Ibu, Celebrex, Voltaren Gel REVIEW OF ORGAN SYSTEMS: CONSTITUTIONAL: No fevers or chills. No recent weight loss. NEUROLOGICAL: + numbness and tingling along the distal extremities. No seizure disorders or headaches. MUSCULOSKELETAL: + pain PSYCHIATRIC: Denies current depression or suicidal thoughts. Physical Examinations : Constitutional : Cooperative , not in acute distress . Neurologic : Cranial nerve II to XII intact. No focal neurological deficits. Psychiatric : alert & oriented x 3. Matching mood & appropriate affect. Judgment & insight intact. Musculoskeletal : Cervical Spine Motor strength in the deltoid and biceps: Normal right side. Normal Left side Motor strength biceps and the wrist extensors: Normal right side . Normal left side Motor strength in the triceps muscle: Normal right side. Normal left side Deep tendon reflexes: Normal at the biceps. Normal at Brachioradialis. Normal at triceps Vertebral body tenderness to deep palpation over Cervical facet loading test: positive bilaterally Spurling test: positive bilaterally Neck distraction test: positive bilaterally Mounika sign: positive bilaterally Lumbar spine Motor strength lower extremities ,thigh and legs 5/5 Right side , 5/5 Left side Deep tendon reflexes : Normal Knee Jerk. Normal Ankle Jerk Vertebral body tenderness over L4 Harley Test positive L L3-L4/ L4-L5 Lumbar facet Loading Test: positive Right / positive Left Range of motion of the lumbar spine Flexion 30 degrees, extension 10 degrees Straight Leg Raise test: Left/ Right po sitive at < 35 degrees Josue test: positive right / positive left. Severe tenderness over the Sacroiliac joint on the Right / Left sides Gaenslen test: positive bilaterally Seated flexion test: positive bilaterally. Sacral spine : Severe tenderness over the Sacroiliac joint: right side / left side Range of motion: Flexion of the lumbar spine <60 degrees Range of motion: Extension of the lumbar spine <20 degrees Gaenslen's Test positive L> R Josue test: positive right side / left side Thigh Thrust Test BL positive Sacral Thrust Test Imaging: MRI non contrast lumbar spine from 06/15/24 reviewed Assessment/ Plan : BL Sacroiliitis, Lumbar radiculopathy Will manage residual pain and may RTC on an as-needed basis. Celebrex 100 mg #60 with 1 refill. Use, side effects, adverse reactions, safe storage discussed. All questions answered. I have spent greater than 30 minutes on patient care today. Dr Seay was available by phone for the evaluation of this patient. The time was used to review the medical records including relevant urine studies and Prescription history (MAPs), review of the available imaging, evaluation and examination of the patient, coordination of care with the medical staff and if applicable referring physicians, as well as creation of the medical record PQRS Narrative: Smoking Status Never smoker Hx Alcohol Use (MH) No Home Medications: Ambulatory Orders Atorvastatin [Lipitor] 80 mg PO 1800 11/19/15 Budesonide/Formoterol Fumarate [Symbicort 160-4.5 Mcg Inhaler] 1 puff IH BID PRN 11/19/15 Citalopram Hydrobromide [CeleXA] 40 mg PO 1800 11/19/15 Fluticasone Nasal [place] [Flonase Nasal [place]] 2 spray EA NOSTRIL HS 11/19/15 Montelukast [Singulair] 10 mg PO HS 11/19/15 Pantoprazole Sodium [Protonix] 40 mg PO DAILY 11/19/15 Levothyroxine Sodium [Synthroid] 88 mcg PO DAILY 03/20/19 Cholecalciferol [Vitamin D3 (25 Mcg = 1000 Iu)] 2,000 unit PO 1800 04/09/20 cycloSPORINE [Restasis] 1 drop BOTH EYES BID 04/09/20 Ascorbic Acid [Vitamin C] 500 mg PO 1800 08/05/20 Eslicarbazepine Acetate [Aptiom] 600 mg PO HS 08/05/20 Albuterol Sulfate [Proair Digihaler] 1 puff INHALATION Q6H PRN 04/07/21 Vit C/E/Zn/Coppr/Lutein/Zeaxan [Preservision Areds 2 Softgel] 1 each PO DAILY 04/22/22 Multivit with Calcium,Iron,Min [Women's Multivitamin] 1 each PO DAILY 08/10/24 Loratadine [Claritin] 10 mg PO DAILY PRN 08/14/24 methocarbamoL [Robaxin-750] 750 mg PO BID PRN 08/14/24 diazePAM [Valium] 5 mg PO DAILY 1 Days #2 tab 10/17/24 Celecoxib [CeleBREX] 200 mg PO BID PRN 11/06/24 Tirzepatide [Zepbound] 5 mg SQ FR 11/06/24 Cyclobenzaprine [Flexeril] 5 mg PO TID PRN 30 Days #90 tab 11/08/24 Diclofenac Sodium Gel [Voltaren 1% Gel] 50 gm TOPICAL BID PRN 12/12/24 Controlled Substance Measures - Controlled Substance Measures Is patient prescribed a controlled substance at discharge?: No
== END ==
LOC: PNWHC3 13:29
PROVIDERS: ATTEND Specialist
DX: M54.16 Radiculopathy, lumbar region (principal); M46.1 Sacroiliitis, not elsewhere classified; Z79.1 Long term (current) use of non-steroidal anti-inflammatories (NSAID); Z88.2 Allergy status to sulfonamides; Z88.1 Allergy status to other antibiotic agents; Z91.048 Other nonmedicinal substance allergy status; Z88.8 Allergy status to other drugs, medicaments and biological substances
CPT/HCPCS: 99211